=== PATIENT | female | born 1955 | race Caucasian/White ===

== ENCOUNTER 2017-07-31 14:12 | Inpatient (IN) ==
[2017-07-31] MEDS ORDERED: *HR* HYDROcodone/Acet 5/325 mg TABLET PO ONE (14:40)
[2017-07-31] MEDS ORDERED: Ondansetron ODT 4 MG TAB.RAPDIS SL ONE (14:40)
--- NOTE | 2017-07-31 14:57 | Emergency Department Note ---
Disposition Clinical Impression: Closed trimalleolar fracture of right ankle Qualifiers: Encounter type: initial encounter Qualified Code(s): S82.851A - Displaced trimalleolar fracture of right lower leg, initial encounter for closed fracture Closed avulsion fracture of left talus Qualifiers: Encounter type: initial encounter Fracture alignment: displaced Qualified Code( s): S92.152A - Displaced avulsion fracture (chip fracture) of left talus, initial encounter for closed fracture Disposition: Admitted As Inpatient Condition: Good Lower Extremity Injury HPI - General Chief Complaint: ED Extremity Injury, Lower Stated Complaint: fall, RLE injury Time Seen by Provider: 07/31/17 14:31 Source: patient, family Mode of arrival: private vehicle Limitations: no limitations Nursing Notes Reviewed: Yes Vital Signs Reviewed: Yes - History of Present Illness Pt Subjective Complaint: ankle injury Injury location: Bilateral ankle ("Right is much worse than left") 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 Denies: deformity, suspects foreign body, laceration, weakness Treatments prior to arrival: cold therapy - Related Data Home Medications Medication Instructions Recorded Confirmed Biotin 5,000 mcg PO DAILY 07/31/17 07/31/17 Diltiazem CD (24hr) [Cardizem CD] 240 mg PO DAILY 07/31/17 07/31/17 Gabapentin [Neurontin] 600 mg PO TID 07/31/17 07/31/17 Loratadine [Claritin] 10 mg PO DAILY 07/31/17 07/31/17 Montelukast [Singulair] 10 mg PO DAILY 07/31/17 07/31/17 Omeprazole [PriLOSEC] 40 mg PO DAILY 07/31/17 07/31/17 Sitagliptin Phos/Metformin HCl 1 tab PO BID 07/31/17 07/31/17 [Janumet 50-1,000 mg Tablet] Allergies Allergy/AdvReac Type Severity Reaction Status Date / Time Sulfa (Sulfonamide AdvReac Nausea Verified 07/31/17 16:17 Antibiotics) All systems ED: reviewed and negative except as stated. Review of Systems: As Per HPI Constitutional: Denies: fever, chills, weakness Cardiovascular: Denies: chest pain, palpitations Respiratory: Denies: cough, dyspnea Gastrointestinal: Denies: abdominal pain, nausea, vomiting Musculoskeletal: Reports: as per HPI, joint swelling, arthralgia. Denies: back pain, neck pain Neurological: Reports: as per HPI, numbness. Denies: headache, weakness Hematological/Lymphatic: Denies: easy bleeding, easy bruising Past Medical History - Past Medical History Attestation: Yes The following information was validated with the patient. Source: patient Medical history: Reports: diabetes, hypertension Surgical history: Reports: non-contributory Psychiatric history: Reports: no psych history - Social History Smoking Status: Never smoker Alcohol use: Reports: none Drug use: Reports: none Physical Exam - General Limitations: no limitations General appearance: alert, in no apparent distress - Head Head exam: atraumatic, normocephalic, normal inspection - Eye Eye exam: Present: normal appearance, PERRL. Absent: scleral icterus, conjunctival injection, periorbital swelling - ENT ENT exam: mucous membranes moist - Neck Neck exam: Present: normal inspection, full ROM, trachea midline. Absent: tenderness - Chest Chest inspection: Present: normal inspection - Respiratory Respiratory exam: Absent: respiratory distress - Cardiovascular Cardiovascular exam: Present: regular rate - Extremities Exam Extremities exam: Present: tenderness, normal capillary refill. Absent: calf tenderness - Expanded Lower Extremity Exam Hip/Pelvis exam: Present: normal inspection, full ROM Upper leg exam: Present: normal inspection. Absent: tenderness Knee exam: Present: normal inspection, full ROM, knee extension intact. Absent : tenderness Lower leg exam: Present: normal inspection, Achilles tendon intact. Absent: tenderness, swelling Ankle exam: Present: tenderness, swelling. Absent: full ROM, abrasion, ecchymosis, deformity, crepitus, dislocation, erythema 1 - tender, edematous 2 - tender, edematous 3 - tender, edematous Foot/toe exam: Present: tenderness (dorsal ), swelling (mild, right). Absent: abrasion, laceration, ecchymosis, deformity, crepitus, dislocation, erythema, calcaneal tenderness, tenderness at base of 5th metatarsal Neurovascular/Tendon exam: Present: normal capillary refill, normal fine/light touch. Absent: pulse deficit, motor deficit, sensory deficit, extremity cold to touch, pallor, foot drop, significant pain with passive ROM of distal joint Gait: not tested/not observed - Back Exam Back exam: Present: normal inspection - Neurological Exam Neurological exam: Present: alert, oriented X3, CN II-XII intact - Psychiatric Psychiatric exam: Present: normal affect, normal mood - Skin Skin exam: Present: warm, dry, intact, normal color Course Course Narrative: patient slipped on a step and fell, injuring her ankles - right worse than left. She denies hitting her head, denies head, neck or back injury or pain. She has pain primarily in the right ankle and is unable to bear weight. She also has mild pain in the left ankle. X-rays and pain medication have been ordered. Pain meds did not help. Parenteral analgesics have been ordered. X-ray shows a mildly displaced trimalleolar fracture of the right ankle. No bony ultimately of the right foot. Left ankle has soft tissue swelling and left foot has a small avulsion fracture of the talar neck. The right ankle will require surgical management. 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 He will repair the right ankle fracture on Wednesday. The case including x-ray findings, consult recommendations and plan has been discussed with Dr. Hernandes. He has had [id number] time with patient and agrees with the assessment and plan. Splints were applied. Patient was offered crutches but states that she has some. A family member brought him in for her to use. - Consultations Consultation #1: Case was discussed with Dr. George. He recommends calling the foot and ankle specialist on-call. Time: 15:27 Consultation #2: Case discussed with Dr. Waggoner. He recommends admission. Hospitalist has been paged. Time: 15:37 Consultation #3: Case discussed with the hospitalist. He will admit the patient. He requested that labs be ordered on the patient. These orders were entered. Results will be reviewed by the admitting team. Time: 16:15 Vital Signs Temperature 97.7 F 07/31/17 14:15 Pulse Rate 98 07/31/17 14:15 Respiratory Rate 18 07/31/17 14:15 Blood Pressure 160/86 07/31/17 14:15 O2 Sat by Pulse Oximetry 98 07/31/17 14:15 Temperature 98.0 F 07/31/17 17:03 Pulse Rate 92 07/31/17 17:03 Respiratory Rate 14 07/31/17 17:03 Blood Pressure 154/88 07/31/17 17:03 O2 Sat by Pulse Oximetry 95 07/31/17 17:03 Oxygen Delivery Oxygen Delivery Room Air Procedures - Orthopedic Splinting/Casting Injury #1 Side: right Lower Extremity Injury Location: ankle, foot Lower Extremity Immobilizer: posterior splint, stirrup splint (Both splints were applied by the tech. Post-application neurovascular exam is normal.) Injury #2 Side: left Lower Extremity Injury Location: foot Lower Extremity Immobilizer: posterior splint (Applied by the tech. Post- application neurovascular exam is normal.) Extremity Injury, Lower - Medical Records Medical records reviewed: Yes I reviewed the patient's medical records. - Lab Data Result diagrams: 07/31/17 16:29 07/31/17 16:29 Lab Results 07/31/17 07/31/17 07/31/17 Range/Units 16:29 16:29 16:29 WBC 16.0 H (4.3-11.1) K/mcL RBC 4.74 (3.82-4.97) M/mcL Hgb 13.3 (11.5-15.4) g/dL Hct 39.5 (35.3-44.9) % MCV 83.3 (83.0-100.0) fL MCH 28.1 (28.0-33.3) pg MCHC 33.7 (31.6-35.5) g/dL RDW 12.9 (11.5-14.5) % Plt Count 272 (140-400) K/mcL MPV 10.9 (9.4-12.4) fL Immature Gran % 1.1 (0-4) % Seg Neutrophils % 72.9 % Lymphocytes % 19.2 % Monocytes % 4.4 % Eosinophils % 1.8 % Basophils % 0.6 % Neutrophils # 11.6 H (1.6-8.9) K/mcL Lymphocytes # 3.1 (0.6-4.6) K/mcL Monocytes # 0.7 (0.0-1.3) K/mcL Eosinophils # 0.3 (0.0-0.6) K/mcL Basophils # 0.1 (0.0-0.2) K/mcL PT 11.5 (9.4-12.1) Seconds INR 1.1 APTT 27.8 (26.0-36.0) Seconds Sodium 138 (136-145) mEq/L Potassium 4.5 (3.5-4.5) mEq/L Chloride 104 (98-109) mEq/L Carbon Dioxide 22 (19-29) mEq/L BUN 15 (7-20) mg/dL Creatinine 0.83 (0.57-1.11) mg/dL Est GFR ( Amer) > 60 (> 60) Est GFR (Non-Af Amer) > 60 (> 60) BUN/Creatinine Ratio 18 (6-26) Glucose 273 H (70-99) mg/dL Calculated Osmolality 297 (280-300) Calcium 9.6 (8.6-10.8) mg/dL Total Bilirubin 0.3 (0.2-1.2) mg/dL AST 22 (5-34) Units/L ALT 36 (0-55) Units/L Alkaline Phosphatase 92 (38-126) Units/L Serum Total Protein 7.6 (6.0-8.3) g/dL Albumin 4.0 (3.5-5.0) g/dL Globulin 3.6 H (2.4-3.5) g/dL Albumin/Globulin Ratio 1.1 (1.1-2.2) - Radiology Data Radiology results reviewed: Yes I reviewed the patient's radiology results.
[2017-07-31] MEDS ORDERED: Ketorolac 60 MG/2 ML VIAL IM ONE (15:24)
[2017-07-31] MEDS ORDERED: Ondansetron 4 MG/2 ML VIAL IVP ONE (15:57)
[2017-07-31] MEDS ORDERED: *HR* Morphine 2 MG/ML SYRINGE IVP ONE (15:57)
--- NOTE | 2017-07-31 15:59 | Emergency Department Note ---
Disposition Clinical Impression: Closed trimalleolar fracture of right ankle Qualifiers: Encounter type: initial encounter Qualified Code(s): S82.851A - Displaced trimalleolar fracture of right lower leg, initial encounter for closed fracture Closed avulsion fracture of left talus Qualifiers: Encounter type: initial encounter Fracture alignment: displaced Qualified Code( s): S92.152A - Displaced avulsion fracture (chip fracture) of left talus, initial encounter for closed fracture Disposition: Admitted As Inpatient Condition: Good General Adult HPI - General Chief complaint: ED Extremity Injury, Lower Stated complaint: fall, RLE injury Time Seen by Provider: 07/31/17 14:31 Source: patient, family Mode of arrival: private vehicle Limitations: no limitations - History of Present Illness Pain Scale: 10 - Related Data Home Medications Medication Instructions Recorded Confirmed Biotin 5,000 mcg PO DAILY 07/31/17 07/31/17 Diltiazem CD (24hr) [Cardizem CD] 240 mg PO DAILY 07/31/17 07/31/17 Gabapentin [Neurontin] 600 mg PO TID 07/31/17 07/31/17 Loratadine [Claritin] 10 mg PO DAILY 07/31/17 07/31/17 Montelukast [Singulair] 10 mg PO DAILY 07/31/17 07/31/17 Omeprazole [PriLOSEC] 40 mg PO DAILY 07/31/17 07/31/17 Sitagliptin Phos/Metformin HCl 1 tab PO BID 07/31/17 07/31/17 [Janumet 50-1,000 mg Tablet] Allergies Allergy/AdvReac Type Severity Reaction Status Date / Time Sulfa (Sulfonamide AdvReac Nausea Verified 07/31/17 16:17 Antibiotics) Constitutional: Denies: fever, chills, weakness Cardiovascular: Denies: chest pain, palpitations Respiratory: Denies: cough, dyspnea Gastrointestinal: Denies: abdominal pain, nausea, vomiting Musculoskeletal: Reports: as per HPI, joint swelling, arthralgia. Denies: back pain, neck pain Neurological: Reports: as per HPI, numbness. Denies: headache, weakness Hematological/Lymphatic: Denies: easy bleeding, easy bruising Past Medical History - Past Medical History Medical history: Reports: diabetes, hypertension Surgical history: Reports: non-contributory Psychiatric history: Reports: no psych history - Social History Smoking Status: Never smoker Alcohol use: Reports: none Drug use: Reports: none Physical Exam - General Limitations: no limitations General appearance: alert, in no apparent distress Course Vital Signs Temperature 97.7 F 07/31/17 14:15 Pulse Rate 98 07/31/17 14:15 Respiratory Rate 18 07/31/17 14:15 Blood Pressure 160/86 07/31/17 14:15 O2 Sat by Pulse Oximetry 98 07/31/17 14:15 Temperature 98.0 F 07/31/17 23:54 Pulse Rate 77 07/31/17 23:54 Respiratory Rate 19 07/31/17 23:54 Blood Pressure 140/75 07/31/17 23:54 O2 Sat by Pulse Oximetry 97 07/31/17 23:54 Oxygen Delivery Oxygen Delivery Room Air Medical Decision Making - Lab Data Result diagrams: 07/31/17 16:29 07/31/17 16:29 Lab Results 07/31/17 07/31/17 07/31/17 Range/Units 16:29 16:29 16:29 WBC 16.0 H (4.3-11.1) K/mcL RBC 4.74 (3.82-4.97) M/mcL Hgb 13.3 (11.5-15.4) g/dL Hct 39.5 (35.3-44.9) % MCV 83.3 (83.0-100.0) fL MCH 28.1 (28.0-33.3) pg MCHC 33.7 (31.6-35.5) g/dL RDW 12.9 (11.5-14.5) % Plt Count 272 (140-400) K/mcL MPV 10.9 (9.4-12.4) fL Immature Gran % 1.1 (0-4) % Seg Neutrophils % 72.9 % Lymphocytes % 19.2 % Monocytes % 4.4 % Eosinophils % 1.8 % Basophils % 0.6 % Neutrophils # 11.6 H (1.6-8.9) K/mcL Lymphocytes # 3.1 (0.6-4.6) K/mcL Monocytes # 0.7 (0.0-1.3) K/mcL Eosinophils # 0.3 (0.0-0.6) K/mcL Basophils # 0.1 (0.0-0.2) K/mcL PT 11.5 (9.4-12.1) Seconds INR 1.1 APTT 27.8 (26.0-36.0) Seconds Sodium 138 (136-145) mEq/L Potassium 4.5 (3.5-4.5) mEq/L Chloride 104 (98-109) mEq/L Carbon Dioxide 22 (19-29) mEq/L BUN 15 (7-20) mg/dL Creatinine 0.83 (0.57-1.11) mg/dL Est GFR ( Amer) > 60 (> 60) Est GFR (Non-Af Amer) > 60 (> 60) BUN/Creatinine Ratio 18 (6-26) Glucose 273 H (70-99) mg/dL POC Glucose (58-89) Calculated Osmolality 297 (280-300) Calcium 9.6 (8.6-10.8) mg/dL Total Bilirubin 0.3 (0.2-1.2) mg/dL AST 22 (5-34) Units/L ALT 36 (0-55) Units/L Alkaline Phosphatase 92 (38-126) Units/L Serum Total Protein 7.6 (6.0-8.3) g/dL Albumin 4.0 (3.5-5.0) g/dL Globulin 3.6 H (2.4-3.5) g/dL Albumin/Globulin Ratio 1.1 (1.1-2.2) 07/31/17 Range/Units 20:25 WBC (4.3-11.1) K/mcL RBC (3.82-4.97) M/mcL Hgb (11.5-15.4) g/dL Hct (35.3-44.9) % MCV (83.0-100.0) fL MCH (28.0-33.3) pg MCHC (31.6-35.5) g/dL RDW (11.5-14.5) % Plt Count (140-400) K/mcL MPV (9.4-12.4) fL Immature Gran % (0-4) % Seg Neutrophils % % Lymphocytes % % Monocytes % % Eosinophils % % Basophils % % Neutrophils # (1.6-8.9) K/mcL Lymphocytes # (0.6-4.6) K/mcL Monocytes # (0.0-1.3) K/mcL Eosinophils # (0.0-0.6) K/mcL Basophils # (0.0-0.2) K/mcL PT (9.4-12.1) Seconds INR APTT (26.0-36.0) Seconds Sodium (136-145) mEq/L Potassium (3.5-4.5) mEq/L Chloride (98-109) mEq/L Carbon Dioxide (19-29) mEq/L BUN (7-20) mg/dL Creatinine (0.57-1.11) mg/dL Est GFR ( Amer) (> 60) Est GFR (Non-Af Amer) (> 60) BUN/Creatinine Ratio (6-26) Glucose (70-99) mg/dL POC Glucose 227 H (58-89) Calculated Osmolality (280-300) Calcium (8.6-10.8) mg/dL Total Bilirubin (0.2-1.2) mg/dL AST (5-34) Units/L ALT (0-55) Units/L Alkaline Phosphatase (38-126) Units/L Serum Total Protein (6.0-8.3) g/dL Albumin (3.5-5.0) g/dL Globulin (2.4-3.5) g/dL Albumin/Globulin Ratio (1.1-2.2) Attestation Statement - Attestation Attestation: I examined this patient and my medical decision-making was reviewed with the Resident Physician. I agree with the documented findings, disposition and treatment plan as described except to the extent set forth below. [id number] time provided Patient with a fracture. Case staffed with the on-call crtt by the physician clinical education assistant. Admission requested. Splint applied prior to my examination
[2017-07-31 16:43] LABS: INR 1.1; Prothrombin Time 11.5 Seconds (9.4-12.1)
[2017-07-31 16:46] LABS: Activated Partial Thrombo Time 27.8 Seconds (26.0-36.0); Basophils # 0.1 K/mcL (0.0-0.2); Basophils % 0.6 %; Eosinophils # 0.3 K/mcL (0.0-0.6); Eosinophils % 1.8 %; Hematocrit 39.5 % (35.3-44.9); Hemoglobin 13.3 g/dL (11.5-15.4); Immature Granulocytes % 1.1 % (0-4); Lymphocytes # 3.1 K/mcL (0.6-4.6); Lymphocytes % 19.2 %; Mean Corpuscular HGB Conc 33.7 g/dL (31.6-35.5); Mean Corpuscular Hemoglobin 28.1 pg (28.0-33.3); Mean Corpuscular Volume 83.3 fL (83.0-100.0); Mean Platelet Volume 10.9 fL (9.4-12.4); Monocytes # 0.7 K/mcL (0.0-1.3); Monocytes % 4.4 %; Neutrophils # 11.6 K/mcL (1.6-8.9); Platelet Count 272 K/mcL (140-400); Red Blood Count 4.74 M/mcL (3.82-4.97); Red Cell Distribution Width 12.9 % (11.5-14.5); Segmented Neutrophils % 72.9 %
[2017-07-31 16:55] LABS: Alanine Aminotransferase 36 Units/L (0-55); Albumin/Globulin Ratio 1.1 (1.1-2.2); Alkaline Phosphatase 92 Units/L (38-126); Aspartate Amino Transferase 22 Units/L (5-34); BUN/Creatinine Ratio 18 (6-26); Bilirubin,Total 0.3 mg/dL (0.2-1.2); Blood Urea Nitrogen 15 mg/dL (7-20); Calcium 9.6 mg/dL (8.6-10.8); Carbon Dioxide 22 mEq/L (19-29); Chloride 104 mEq/L (98-109); Globulin 3.6 g/dL (2.4-3.5); Glucose 273 mg/dL (70-99); Osmolality,Calculated 297 (280-300); Potassium 4.5 mEq/L (3.5-4.5); Sodium 138 mEq/L (136-145); Total Protein 7.6 g/dL (6.0-8.3); eGFR For African Americans > 60 (> 60); eGFR For Non-African Americans > 60 (> 60)
[2017-07-31] MEDS ORDERED: Acetaminophen 325 MG TABLET PO PRN (18:54)
[2017-07-31] MEDS ORDERED: Naloxone 0.4 MG/ML INJ IVP PRN (18:54)
[2017-07-31] MEDS ORDERED: D5% in Water 1,000 ML IVC PRN (18:59)
[2017-07-31] MEDS ORDERED: *HR* Dextrose 50 % in Water (Syg) 50 ML SYRINGE IVP PRN (18:59)
[2017-07-31] MEDS ORDERED: Dextrose Gel 15 GM PO PRN ×2 (18:59)
--- NOTE | 2017-07-31 19:11 | Internal Med History&Physical ---
Date of Encounter: 07/31/17 Time of Encounter: 19:04 Assessment and Plan (1) Closed trimalleolar fracture of right ankle Current visit: Yes Status: Acute Consult to podiatry patient-we will make patient nothing by mouth after midnight for possible surgical intervention in the a.m. Will continue with morphine and Webster for pain Zofran for nausea Qualifiers: Encounter type: initial encounter Qualified Code(s): S82.851A - Displaced trimalleolar fracture of right lower leg, initial encounter for closed fracture (2) Closed avulsion fracture of left talus Current visit: Yes Status: Acute We will have podiatry see patient consult placed Qualifiers: Encounter type: initial encounter Fracture alignment: displaced Qualified Code(s): S92.152A - Displaced avulsion fracture (chip fracture) of left talus, initial encounter for closed fracture (3) Hypertension Current visit: No Status: Chronic Continue with Cardizem Low-sodium diet Qualifiers: Hypertension type: essential hypertension Qualified Code(s): I10 - Essential (primary) hypertension (4) Diabetes Current visit: No Status: Chronic Accu-Cheks before meals at bedtime with sliding scale insulin we will hold oral medications for now Diabetic diet Qualifiers: Diabetes mellitus type: type 2 Diabetes mellitus complication status: without complication 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 Conde is a 61 year old female past medical history of hypertension diabetes. According to the patient she was turning to step down on 2 steps lost her balance and fell she denies hitting her head denies any neck or back injury. However she will was experiencing right ankle pain and was unable to bear weight. She also experienced mild pain to her left ankle. She presented to the ER for evaluation and was found to have mildly displaced trimalleolar fracture of the right ankle. Left ankle with soft tissue swelling left foot with a small avulsion fracture of the talar neck. The ER did speak with podiatry he will see patient. Patient will be admitted for further orthopedic evaluation. Presently patient does not appear to be in any pain or discomfort. She she is hemodynamically stable at this time Past Med Surg Social Fam HX - Past Medical History Medical history: diabetes, hypertension Psychiatric history: no psych history - Past Surgical History Surgical History: non-contributory - Social History Smoking Status: Never smoker Smokeless Tobacco Status: No Alcohol use: none Drug use: none - Family History Mother Living Status: Age at : 47 Cause of : Lung cancer Father Living Status: Still Living Hx Family Cancer: Yes (Bladder) Internal Medicine - H&P: Meds Biotin 5,000 mcg PO DAILY 07/31/17 [History] Diltiazem CD (24hr) [Cardizem CD] 240 mg PO DAILY 07/31/17 [History] Gabapentin [Neurontin] 600 mg PO TID 07/31/17 [History] Loratadine [Claritin] 10 mg PO DAILY 07/31/17 [History] Montelukast [Singulair] 10 mg PO DAILY 07/31/17 [History] Omeprazole [PriLOSEC] 40 mg PO DAILY 07/31/17 [History] Sitagliptin Phos/Metformin HCl [Janumet 50-1,000 mg Tablet] 1 tab PO BID [History] 3 Allergy/AdvReac Type Severity Reaction Status Date / Time Sulfa (Sulfonamide AdvReac Nausea Verified 07/31/17 16:17 Antibiotics) All Systems PM: A 10-system review of systems was performed and is negative for pertinent findings except as documented above in the HPI. - Constitutional Constitutional: no chills, no fever(s), no night sweats - EENT Eyes: no change in vision, no discharge, no pain, no photophobia Nose, mouth and throat: no dysphagia, no nasal discharge, no neck pain, no sore throat - Cardiovascular Cardiovascular ROS IM: no chest pain, no diaphoresis, no dyspnea, no lightheadedness, no palpitations, no syncope - Respiratory Respiratory: no cough, no dyspnea, no wheezing, no excessive phlegm production - Gastrointestinal Gastrointestinal: no abdominal pain, no diarrhea, no hematemesis, no hematochezia, no melena, no nausea, no vomiting - Genitourinary Genitourinary: no change in urinary stream, no dysuria, no flank pain, no hematuria - Musculoskeletal Musculoskeletal ROS IM: no numbness, no tingling - Integumentary Integumentary IM: no rash, no unusual bruising - Neurological Neurological ROS: no confusion, no convulsions, no focal weakness, no numbness, no tingling, no tremor(s) - Hematologic/Lymphatic Hematologic/Lymphatic: no easy bruising - Constitutional Vitals: Temp Pulse Resp BP Pulse Ox 98.0 F 92 14 154/88 95 07/31/17 17:03 07/31/17 17:03 07/31/17 17:03 07/31/17 17:03 07/31/17 17:03 General appearance: Present: A&O X 3, answers questions appropriately - Head Head exam: Present: atraumatic, normocephalic - Eye Eye exam: Present: PERRL, conjuntiva pink, sclera anicteric Pupils: Present: PERRL - Neck Neck exam general surgery: Present: supple, trachea midline. Absent: lymphadenopathy - Respiratory Respiratory exam: Present: CTAB. Absent: accessory muscle use, rales, rhonchi, wheezes - Cardiovascular Cardiovascular exam: Present: RRR, +S1, +S2. Absent: diastolic murmur, gallop, rubs, systolic murmur - GI/Abdominal GI/Abdominal exam: Present: normal bowel sounds, soft, no peritoneal signs. Absent: distended, tenderness - Extremities Exam Extremities exam: Present: normal capillary refill, tenderness, warm, radial pulses palpable and symmetrical. Absent: calf tenderness, cyanotic, pedal edema - Expanded Lower Extremities Exam Ankle exam: Present: swelling, tenderness - Neurological Exam Neurological exam: Present: CN II-XII intact, oriented X3, no focal deficits. Absent: pronater drift, facial droop, speech deficit - Skin Skin exam: Present: dry, intact Internal Med - H&P Results - Labs CBC & Chem 7: 07/31/17 16:29 07/31/17 16:29 - Diagnostic Studies Other Images Additional comments: Ankle X-Ray 07/31/17 14:57 IMPRESSION: No acute osseous abnormality of the left ankle. Small avulsion fracture along the dorsal aspect of the talar neck. D/ / Carlos Fernandez MD / Carlos Fernandez MD Interpreting Provider: Carlos Fernandez MD Foot X-Ray 07/31/17 14:57 IMPRESSION: No acute osseous abnormality of the left ankle. Small avulsion fracture along the dorsal aspect of the talar neck. D/ / Carlos Fernandez MD / Carlos Fernandez MD Interpreting Provider: Carlos Fernandez MD Knee X-Ray 07/31/17 15:45 IMPRESSION: No acute bony abnormality. D/ / Vianca Rubalcava Cha, MD / Vianca Rubalcava Cha, MD Interpreting Provider: Vianca Rubalcava Cha, MD
[2017-07-31] MEDS: Gabapentin 300 MG CAPSULE PO SCH (20:15)
[2017-07-31] MEDS: *HR* Morphine 2 MG/ML SYRINGE IVP PRN (20:15)
[2017-07-31] MEDS: Insulin LISPRO 300 UNITS/3 ML VIAL SQ SCH (20:30)
--- NOTE | 2017-07-31 22:32 | Event Note ---
Date of Encounter: 07/31/17 Time of Encounter: 22:30 Patient and examined with nurse practitioner. Agree with this assessment and plan. With regards to preoperative clearance, patient has fair functional capacity. She can walk 2 blocks. Clinical predictors included diabetes mellitus and hypertension. Patient denies any chest pain with exertion. Patient mentioned that she had a coronary angiogram approximately 5 years ago showed no occlusive disease. Her electrocardiogram nonetheless shows T wave inversion and leads V1 and V2. However there is no ST segment shift. No active chest pain. Therefore there is no need for further preoperative cardiac testing. continue diltiazem. Because of her clinical predictors she will be at moderate risk for perioperative cardiac complications.
[2017-08-01] MEDS: *HR* HYDROcodone/Acet 5/325 mg TABLET PO PRN ×5 (00:04→23:42)
[2017-08-01] MEDS: *HR* Morphine 2 MG/ML SYRINGE IVP PRN ×2 (02:54→11:43)
[2017-08-01 05:03] LABS: Mean Corpuscular HGB Conc 33.2 g/dL (31.6-35.5); Mean Corpuscular Hemoglobin 28.1 pg (28.0-33.3); Mean Corpuscular Volume 84.6 fL (83.0-100.0); Mean Platelet Volume 11.4 fL (9.4-12.4); Platelet Count 229 K/mcL (140-400); Red Blood Count 4.02 M/mcL (3.82-4.97); Red Cell Distribution Width 13.1 % (11.5-14.5)
[2017-08-01 05:04] LABS: Hemoglobin 11.3 g/dL (11.5-15.4)
[2017-08-01 05:37] LABS: BUN/Creatinine Ratio 20 (6-26); Blood Urea Nitrogen 17 mg/dL (7-20); Calcium 9.2 mg/dL (8.6-10.8); Carbon Dioxide 25 mEq/L (19-29); Chloride 103 mEq/L (98-109); Glucose 242 mg/dL (70-99); Osmolality,Calculated 296 (280-300); Potassium 4.7 mEq/L (3.5-4.5); Sodium 138 mEq/L (136-145); eGFR For African Americans > 60 (> 60); eGFR For Non-African Americans > 60 (> 60)
[2017-08-01] MEDS: Insulin LISPRO 300 UNITS/3 ML VIAL SQ SCH ×5 (07:16→20:20)
[2017-08-01] MEDS: Gabapentin 300 MG CAPSULE PO SCH ×3 (08:03→19:48)
[2017-08-01] MEDS: Diltiazem CD (24hr) 240 MG CAPSULE PO SCH (08:03)
[2017-08-01] MEDS: Pantoprazole 40 MG VIAL IVP SCH (08:08)
--- NOTE | 2017-08-01 09:04 | Podiatry Consult Note ---
Date of Encounter: 08/01/17 Time of Encounter: 09:02 Assessment and Plan (1) Closed trimalleolar fracture of right ankle Current visit: Yes Status: Acute Assessment #1: Bimalleolar fracture right ankle #2 long fracture talar neck left #3 type 2 diabetes under control #4 hypertension Plan: #1 continue elevation ice rest compression to control edema and prevent fracture blisters #2 removed posterior splint of left side to prevent heel ulceration and reapply Toribio wrap. #3 patient may use bedside commode with assistance with touchdown weightbearing of her left heel #4 nothing by mouth after midnight in anticipation of ORIF right ankle #5 do not anticipate having to surgically repair avulsion fracture of the left talus Qualifiers: Encounter type: initial encounter Qualified Code(s): S82.851A - Displaced trimalleolar fracture of right lower leg, initial encounter for closed fracture History of Present Illness Chief complaint: Fracture right ankle left talus HPI: Ms. Conde is a 61 year old female, presented to ED last evening with a bimalleolar fracture of the right ankle and avulsion fracture of the left talus. Patient was at her [employer] yesterday for a function was on an anterior step and fell causing these fractures. Patient states she crawled to a point where she could get help. She was then transported to the emergency department and admitted for pain control and presurgical optimization. She has a 10 year history of diabetes under good control. Her last A1c per patient was 6.7. She relates complete sensation of both feet although she does have some paresthesias that are controlled with gabapentin at night. Past Med Surg Social Fam HX - Past Medical History Medical history: diabetes, hypertension Psychiatric history: no psych history - Past Surgical History Surgical History: non-contributory - Social History Smoking Status: Never smoker Smokeless Tobacco Status: No Alcohol use: none Drug use: none - Family History Mother Living Status: Age at : 47 Cause of : Lung cancer Father Living Status: Still Living Hx Family Cancer: Yes (Bladder) Medications and Allergies Biotin 5,000 mcg PO DAILY 07/31/17 [History] Diltiazem CD (24hr) [Cardizem CD] 240 mg PO DAILY 07/31/17 [History] Gabapentin [Neurontin] 600 mg PO TID 07/31/17 [History] Loratadine [Claritin] 10 mg PO DAILY 07/31/17 [History] Montelukast [Singulair] 10 mg PO DAILY 07/31/17 [History] Omeprazole [PriLOSEC] 40 mg PO DAILY 07/31/17 [History] Sitagliptin Phos/Metformin HCl [Janumet 50-1,000 mg Tablet] 1 tab PO BID [History] 3 Allergy/AdvReac Type Severity Reaction Status Date / Time Sulfa (Sulfonamide AdvReac Nausea Verified 07/31/17 16:17 Antibiotics) All Systems Reviewed: A 10-system review of systems was performed and is negative for pertinent findings except as documented above in the HPI. Physical Exam - Constitutional Vitals: Temp Pulse Resp BP Pulse Ox 98.5 F 86 14 135/78 94 08/01/17 06:51 08/01/17 06:51 08/01/17 06:51 08/01/17 06:51 08/01/17 06:51 General appearance: average body habitus, no acute distress - Neurological Exam Additional comments: Intact epicritic sensation 2 point determination light touch her toes distally bilaterally. - Skin Additional comments: Intact, no evidence of fracture blister, or pressure ulceration. - Vascular Capillary Refill: less than 3 seconds Lower Extremity Vascular: no vascular compromise - Ankle & Foot Appearance ankle: swelling Foot appearance: swelling Results - Labs Result Diagrams: 08/01/17 03:50 08/01/17 03:50 Labs: Abnormal lab results WBC 16.0 K/mcL (4.3-11.1) H 08/01/17 03:50 Hgb 11.3 g/dL (11.5-15.4) L D 08/01/17 03:50 Hct 34.0 % (35.3-44.9) L 08/01/17 03:50 Neutrophils # 11.6 K/mcL (1.6-8.9) H 07/31/17 16:29 Potassium 4.7 mEq/L (3.5-4.5) H 08/01/17 03:50 Glucose 242 mg/dL (70-99) H 08/01/17 03:50 POC Glucose 227 (58-89) H 07/31/17 20:25 Globulin 3.6 g/dL (2.4-3.5) H 07/31/17 16:29 H & H 08/01/17 Range/Units 03:50 Hgb 11.3 L D (11.5-15.4) g/dL Hct 34.0 L (35.3-44.9) % All other labs normal. - Diagnostic results Ankle/Foot x-ray: image reviewed Consult Discharge Plan - Plan Referrals: Ministerio Oh DO [Primary Care Provider] -
[2017-08-01 12:15] LABS: Bilirubin,Urine Negative (Negative); Blood,Urine Negative (Negative); Clarity,Urine Clear (Clear); Color,Urine Yellow (Yellow); Glucose,Urine (UA) 250 mg/dL (Normal); Ketones,Urine Negative (Negative); Leukocyte Esterase,Urine Negative (Negative); Nitrite,Urine Negative (Negative); PH,Urine 6.5 pH Units (5.0-8.0); Protein,Urine Negative (Neg-Trace); Specific Gravity,Urine 1.013 (1.010-1.025); Urobilinogen,Urine Normal (Normal)
--- NOTE | 2017-08-01 14:57 | Internal Med Progress Note ---
Date of Encounter: 08/01/17 Time of Encounter: 10:00 - Assessment and plan (1) Hypertension Current Visit: Yes Status: Chronic Assessment and plan: Currently controlled. Continue home medications. Qualifiers: Hypertension type: essential hypertension Qualified Code(s): I10 - Essential (primary) hypertension (2) Diabetes Current Visit: Yes Status: Chronic Assessment and plan: Blood sugars elevated at this time. Has been well controlled recently at home. Monitoring and using insulin at this time. Qualifiers: Diabetes mellitus type: type 2 Diabetes mellitus complication status: without complication Diabetes mellitus retirement insulin use: without retirement use Qualified Code(s): E11.9 - Type 2 diabetes mellitus without complications (3) Closed trimalleolar fracture of right ankle Current Visit: Yes Status: Acute Assessment and plan: Plan is for OR tomorrow. Currently she is moderate risk for a low risk procedure. She relates some chest discomfort when on a medication that now has been stopped. Her symptoms stopped as well. Cardiac cath 5 years ago and was OK per patient. Check echo prior to surgery to andreina GARCIA. Qualifiers: Encounter type: subsequent encounter Fracture healing: with routine healing Qualified Code(s): S82.851D - Displaced trimalleolar fracture of right lower leg, subsequent encounter for closed fracture with routine healing (4) Closed avulsion fracture of left talus Current Visit: Yes Status: Acute Assessment and plan: Conservative management per podiatry. Qualifiers: Encounter type: subsequent encounter Fracture alignment: displaced Fracture healing: with routine healing Qualified Code(s): S92.152D - Displaced avulsion fracture (chip fracture) of left talus, subsequent encounter for fracture with routine healing - Subjective Interval history: Ms Conde is currently admitted for acute fractures of both ankles. She remains moderate to high risk due to potential for worsening issues with fractures and blood sugar. Ms Conde is doing OK. Pain is tolerable at this time. No fever or chills. Plan is for OR tomorrow to fix R ankle. L ankle is an avulsion fracture and to be managed conservatively. - Constitutional Vitals: Temp Pulse Resp BP Pulse Ox 97.8 F 93 16 139/70 95 08/01/17 10:21 08/01/17 10:21 08/01/17 10:21 08/01/17 10:21 08/01/17 10:21 General appearance: Present: A&O X 3, pleasant, answers questions appropriately - Head Head exam: Present: normocephalic - Eye Eye exam: Present: EOMI, conjuntiva pink - ENT ENT exam: Present: mucous membranes dry - Respiratory Respiratory exam: Present: CTAB. Absent: rhonchi, wheezes - Cardiovascular Cardiovascular exam: Present: RRR. Absent: systolic murmur, tachycardia - GI/Abdominal GI/Abdominal exam: Present: soft. Absent: tenderness - Extremities Exam Extremities exam: Present: warm Additional comments: Bilateral posterior splints - Neurological Exam Neurological exam: Present: alert, oriented X3 - Skin Skin exam: Present: warm Internal Medicine: Result - Labs CBC & Chem 7: 08/01/17 03:50 08/01/17 03:50 Labs: Short CBC 08/01/17 Range/Units 03:50 WBC 16.0 H (4.3-11.1) K/mcL Hgb 11.3 L D (11.5-15.4) g/dL Hct 34.0 L (35.3-44.9) % Plt Count 229 (140-400) K/mcL BMP 08/01/17 03:50 Sodium 138 Potassium 4.7 H Chloride 103 Carbon Dioxide 25 BUN 17 Creatinine 0.85 Glucose 242 H Calcium 9.2 Urine 08/01/17 Range/Units 12:06 Urine Color Yellow (Yellow) Urine Clarity Clear (Clear) Urine pH 6.5 (5.0-8.0) pH Units Ur Specific [place] 1.013 (1.010-1.025) Urine Protein Negative (Neg-Trace) mg/dL Urine Glucose (UA) 250 H (Normal) mg/dL - ABG Interpretation ABG results: PT/INR, D-dimer PT 11.5 Seconds (9.4-12.1) 07/31/17 16:29 Consult Discharge Plan - Plan Referrals: Ministerio Oh DO [Primary Care Provider] -
[2017-08-01] MEDS ORDERED: Insulin DETEMIR 100 UNIT/ML X5UNITS SQ SCH (21:00)
[2017-08-02] MEDS: *HR* Morphine 2 MG/ML SYRINGE IVP PRN ×4 (01:47→16:10)
[2017-08-02] MEDS: Ondansetron 4 MG/2 ML VIAL IVP PRN ×2 (01:55→13:54)
[2017-08-02] MEDS: *HR* HYDROcodone/Acet 5/325 mg TABLET PO PRN ×4 (04:44→23:08)
[2017-08-02 05:10] LABS: Hematocrit 36.1 % (35.3-44.9); Hemoglobin 11.7 g/dL (11.5-15.4); Mean Corpuscular HGB Conc 32.4 g/dL (31.6-35.5); Mean Corpuscular Hemoglobin 27.7 pg (28.0-33.3); Mean Corpuscular Volume 85.5 fL (83.0-100.0); Mean Platelet Volume 10.8 fL (9.4-12.4); Platelet Count 247 K/mcL (140-400); Red Blood Count 4.22 M/mcL (3.82-4.97)
[2017-08-02 05:35] LABS: BUN/Creatinine Ratio 19 (6-26); Blood Urea Nitrogen 15 mg/dL (7-20); Calcium 9.1 mg/dL (8.6-10.8); Carbon Dioxide 27 mEq/L (19-29); Chloride 103 mEq/L (98-109); Glucose 235 mg/dL (70-99); Magnesium 1.7 mg/dL (1.6-2.6); Osmolality,Calculated 296 (280-300); Potassium 4.4 mEq/L (3.5-4.5); Sodium 139 mEq/L (136-145); eGFR For African Americans > 60 (> 60); eGFR For Non-African Americans > 60 (> 60)
[2017-08-02] MEDS: Pantoprazole 40 MG VIAL IVP SCH (07:40)
[2017-08-02] MEDS: Gabapentin 300 MG CAPSULE PO SCH ×2 (07:40→13:52)
[2017-08-02] MEDS: Insulin LISPRO 300 UNITS/3 ML VIAL SQ SCH ×3 (07:40→17:31)
[2017-08-02] MEDS: Diltiazem CD (24hr) 240 MG CAPSULE PO SCH (07:40)
--- NOTE | 2017-08-02 13:04 | Podiatry Progress Note ---
Date of Encounter: 08/02/17 Time of Encounter: 13:02 - Assessment and Plan (1) Closed trimalleolar fracture of right ankle Current Visit: Yes Status: Acute The patient was instructed that her ankle is unstable and will need surgical intervention. The patient related an understanding. The patient wishes to pursue surgical intervention. the surgery discussed was open reduction, internal fixation of the trimalleolar ankle fracture.Patient was informed of the risks and complications of surgery. These may include but are not limited to the following; nerve damage, numbness, tingling, RSD/CRPS, loss of motor function, loss of toe, loss of limb, loss of life, ischemia, wound healing issues, infection, scarring, keloid formation, continued pain, arthritis, non- union, mal-union, prominent hardware, displaced hardware, reaction to hardware, the need to remove hardware, bruising, continued limp, the need for future surgery, over correction, under correction, chronic swelling, the need for physical therapy, stiffness of joints, ulceration, slow healing, wound dehiscence, reaction to implant, reaction to sutures. The patient was informed of the possible conservative treatments available which may include but are not limited to the following: Orthotics, bracing, non -weight bearing, physical therapy, padding, taping, steroid injections, NSAIDS, casting. The patient was given the option to seek a second opinion. It was explained that surgery is an art and not an exact science therefore results cannot be guaranteed. All the patients questions and concerns were addressed. Patient agrees to have the surgery despite the possible risks and complications. Absolutely no guarantees were given or implied. Qualifiers: Encounter type: subsequent encounter Fracture healing: with routine healing Qualified Code(s): S82.851D - Displaced trimalleolar fracture of right lower leg, subsequent encounter for closed fracture with routine healing Subjective Principal diagnosis: Right ankle fracture Interval history: Patient relates that she has less pain and that she feels as though it is doing better than it was yesterday. Patient denies any other new pedal complaints. Patient relates that she has been using her left foot to transition to a chair and bedside commode without any issues. Objective - Vital Signs Vital Signs: Vital Signs Temp Pulse Resp BP Pulse Ox 08/02/17 11:51 98.1 F 92 16 124/73 92 08/02/17 06:42 98.4 F 90 15 131/68 92 10/30/17 00:06 98.1 F 81 18 141/80 96 08/01/17 20:35 98.3 F 90 18 148/80 96 Intake and Output 08/01/17 08/02/17 08/02/17 23:59 07:59 15:59 Intake Total 590 / 590 0 / 0 Output Total 850 / 850 200 / 200 Balance -260 / -260 -200 / -200 Intake: Oral 590 / 590 0 / 0 Output: Urine 850 / 850 200 / 200 Other: Meal Dinner Percent of Meal Consumed 90% # Voids 1 Blood Glucose* 276 220 209 - Exam Exam: Pedal pulses palpable. Capillary fill time intact to digits 1 through 5 bilaterally. There are no open lesions, abrasions, or ulcerations. Sensation grossly intact to light touch to the level of the digits. Right ankle edema noted. Pain with palpation of the right ankle. Radiographic exam demonstrates a right ankle fracture. The left foot exam demonstrates a small avulsion fracture of the left foot. - Lab Result Diagrams: 08/02/17 04:54 08/02/17 04:54 Labs: Abnormal lab results WBC 12.8 K/mcL (4.3-11.1) H 08/02/17 04:54 MCH 27.7 pg (28.0-33.3) L 08/02/17 04:54 Neutrophils # 11.6 K/mcL (1.6-8.9) H 07/31/17 16:29 Glucose 235 mg/dL (70-99) H 08/02/17 04:54 POC Glucose 220 (58-89) H 08/02/17 07:36 Globulin 3.6 g/dL (2.4-3.5) H 07/31/17 16:29 Urine Glucose (UA) 250 mg/dL (Normal) H 08/01/17 12:06 Consult Discharge Plan - Plan Referrals: Ministerio Oh DO [Primary Care Provider] -
--- NOTE | 2017-08-02 15:13 | Internal Med Progress Note ---
Date of Encounter: 08/02/17 Time of Encounter: 15:12 - Assessment and plan (1) Hypertension Current Visit: Yes Status: Chronic Assessment and plan: Controlled. Continue meds. Qualifiers: Hypertension type: essential hypertension Qualified Code(s): I10 - Essential (primary) hypertension (2) Diabetes Current Visit: Yes Status: Chronic Assessment and plan: Continue monitoring. Qualifiers: Diabetes mellitus type: type 2 Diabetes mellitus complication status: without complication Diabetes mellitus efficiency expert insulin use: without skilled nursing use Qualified Code(s): E11.9 - Type 2 diabetes mellitus without complications (3) Closed trimalleolar fracture of right ankle Current Visit: Yes Status: Acute Assessment and plan: Plan for OR today. Qualifiers: Encounter type: subsequent encounter Fracture healing: with routine healing Qualified Code(s): S82.851D - Displaced trimalleolar fracture of right lower leg, subsequent encounter for closed fracture with routine healing (4) Closed avulsion fracture of left talus Current Visit: Yes Status: Acute Assessment and plan: Conservative management per podiatry. Qualifiers: Encounter type: subsequent encounter Fracture alignment: displaced Fracture healing: with routine healing Qualified Code(s): S92.152D - Displaced avulsion fracture (chip fracture) of left talus, subsequent encounter for fracture with routine healing - Subjective Interval history: Ms Conde is currently admitted for acute fractures of both ankles. She remains moderate to high risk due to potential for worsening issues with fractures and blood sugar. Ms Conde feels OK. She is waiting to go to OR. Pain is controlled currently. - Constitutional Vitals: Temp Pulse Resp BP Pulse Ox 98.1 F 92 16 124/73 92 08/02/17 11:51 08/02/17 11:51 08/02/17 11:51 08/02/17 11:51 08/02/17 11:51 General appearance: Present: A&O X 3, pleasant, answers questions appropriately - Head Head exam: Present: normocephalic - Eye Eye exam: Present: conjuntiva pink - ENT ENT exam: Present: mucous membranes moist - Respiratory Respiratory exam: Present: CTAB. Absent: rhonchi, wheezes - Cardiovascular Cardiovascular exam: Present: RRR. Absent: tachycardia - GI/Abdominal GI/Abdominal exam: Present: soft. Absent: tenderness - Extremities Exam Extremities exam: Present: warm. Absent: tenderness - Neurological Exam Neurological exam: Present: alert, oriented X3 Internal Medicine: Result - Labs CBC & Chem 7: 08/02/17 04:54 08/02/17 04:54 Labs: Short CBC 08/02/17 Range/Units 04:54 WBC 12.8 H (4.3-11.1) K/mcL Hgb 11.7 (11.5-15.4) g/dL Hct 36.1 (35.3-44.9) % Plt Count 247 (140-400) K/mcL BMP 08/02/17 04:54 Sodium 139 Potassium 4.4 Chloride 103 Carbon Dioxide 27 BUN 15 Creatinine 0.79 Glucose 235 H Calcium 9.1 - ABG Interpretation ABG results: PT/INR, D-dimer PT 11.5 Seconds (9.4-12.1) 07/31/17 16:29 - Impressions Impressions Echocardiogram 08/01/17 11:22 Impressions: LVEF 55%. Mild concentric left ventricular hypertrophy. Mild left ventricular diastolic dysfunction. Normal right ventricular structure and function. No significant valvular dysfunction. No pulmonary hypertension. Left Ventricular Wall Motion: Rest Echo Findings All wall segments showed normal motion. Findings: Study Quality * Technically adequate exam. ECG Findings * Normal sinus rhythm. Left Ventricle * LVEF 55%. * Normal LV chamber size, wall thickness and function. * Mild concentric left ventricular hypertrophy. * Mild left ventricular diastolic dysfunction. Right Ventricle * Normal right ventricular structure and function. Left Atrium * Normal left atrial size. Right Atrium * Normal right atrial size. Aortic Valve * No aortic regurgitation. * Trileaflet aortic valve. * No aortic stenosis. Mitral Valve * Normal mitral valve structure. * No mitral stenosis. * Trace mitral regurgitation. Pulmonic Valve * Pulmonic valve is not well visualized. * No pulmonic stenosis. * Trace pulmonic regurgitation. Tricuspid Valve * Tricuspid valve not well visualized. * No tricuspid regurgitation. Pulmonary Artery * Pulmonary artery not well visualized. Aorta * Normally sized aortic root. Pericardium * There is no pericardial effusion present. Interatrial Septum * Interatrial septum not well evaluated. IVC * The IVC is not well evaluated. Consult Discharge Plan - Plan Referrals: Ministerio Oh DO [Primary Care Provider] -
[2017-08-02] MEDS ORDERED: *HR* Rocuronium Bromide 50 MG/5 ML VIAL ONE (16:10)
[2017-08-02] MEDS ORDERED: *HR* Propofol 200 MG/20 ML VIAL IVP ONE (16:10)
[2017-08-02] MEDS ORDERED: *HR* Succinylcholine 200 MG/10 ML VIAL IVP ONE (16:10)
[2017-08-02] MEDS ORDERED: Lidocaine -MPF 2% 2 ML VIAL ONE (16:10)
[2017-08-02] MEDS ORDERED: Ondansetron 4 MG/2 ML VIAL ONE (16:10)
[2017-08-02] MEDS ORDERED: Dexamethasone 4 MG/ML VIAL ONE (16:10)
[2017-08-02] MEDS ORDERED: Lidocaine -MPF 4% 5 ML AMPUL ONE (16:10)
[2017-08-02] MEDS ORDERED: *HR* FentaNYL (PF) 100 MCG/2 ML VIAL ONE (16:10)
[2017-08-02] MEDS ORDERED: *HR* Midazolam HCl 2 MG/2 ML VIAL ONE (16:11)
[2017-08-02] MEDS ORDERED: Bupivacaine/Clonidine Syringe 1 EACH SYRINGE ONE (16:24)
--- NOTE | 2017-08-02 16:31 | Anesthesia Evaluation PreOp ---
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: Other (Chronic pain maintained on Gabapentin) Other Medical History: Diabetes Type II (maintained on Janumet), GERD ( maitnained on Prilosec) Anesthesia History: No Prior Anesthetic Complications, Past Anesthesia Alcohol Use: none Drug use: none Medications and Allergies Biotin 5,000 mcg PO DAILY 07/31/17 [History] Diltiazem CD (24hr) [Cardizem CD] 240 mg PO DAILY 07/31/17 [History] Gabapentin [Neurontin] 600 mg PO TID 07/31/17 [History] Loratadine [Claritin] 10 mg PO DAILY 07/31/17 [History] Montelukast [Singulair] 10 mg PO DAILY 07/31/17 [History] Omeprazole [PriLOSEC] 40 mg PO DAILY 07/31/17 [History] Sitagliptin Phos/Metformin HCl [Janumet 50-1,000 mg Tablet] 1 tab PO BID [History] 3 Allergy/AdvReac Type Severity Reaction Status Date / Time Sulfa (Sulfonamide AdvReac Nausea Verified 07/31/17 16:17 Antibiotics) - Meds/Allergy Pre-op Review Medications Reviewed: Yes Allergies Reviewed: Yes Beta Blockers on Current Med List: No Anesthesia Results - Labs 08/02/17 04:54 08/02/17 04:54 Laboratory Results WBC 12.8 K/mcL (4.3-11.1) H 08/02/17 04:54 RBC 4.22 M/mcL (3.82-4.97) 08/02/17 04:54 Hgb 11.7 g/dL (11.5-15.4) 08/02/17 04:54 Hct 36.1 % (35.3-44.9) 08/02/17 04:54 MCV 85.5 fL (83.0-100.0) 08/02/17 04:54 MCH 27.7 pg (28.0-33.3) L 08/02/17 04:54 MCHC 32.4 g/dL (31.6-35.5) 08/02/17 04:54 RDW 13.0 % (11.5-14.5) 08/02/17 04:54 Plt Count 247 K/mcL (140-400) 08/02/17 04:54 MPV 10.8 fL (9.4-12.4) 08/02/17 04:54 Immature Gran % 1.1 % (0-4) 07/31/17 16:29 Seg Neutrophils % 72.9 % 07/31/17 16:29 Lymphocytes % 19.2 % 07/31/17 16:29 Monocytes % 4.4 % 07/31/17 16:29 Eosinophils % 1.8 % 07/31/17 16:29 Basophils % 0.6 % 07/31/17 16:29 Neutrophils # 11.6 K/mcL (1.6-8.9) H 07/31/17 16:29 Lymphocytes # 3.1 K/mcL (0.6-4.6) 07/31/17 16:29 Monocytes # 0.7 K/mcL (0.0-1.3) 07/31/17 16:29 Eosinophils # 0.3 K/mcL (0.0-0.6) 07/31/17 16:29 Basophils # 0.1 K/mcL (0.0-0.2) 07/31/17 16:29 PT 11.5 Seconds (9.4-12.1) 07/31/17 16:29 INR 1.1 07/31/17 16:29 APTT 27.8 Seconds (26.0-36.0) 07/31/17 16:29 Sodium 139 mEq/L (136-145) 08/02/17 04:54 Potassium 4.4 mEq/L (3.5-4.5) 08/02/17 04:54 Chloride 103 mEq/L (98-109) 08/02/17 04:54 Carbon Dioxide 27 mEq/L (19-29) 08/02/17 04:54 BUN 15 mg/dL (7-20) 08/02/17 04:54 Creatinine 0.79 mg/dL (0.57-1.11) 08/02/17 04:54 Est GFR ( Amer) > 60 (> 60) 08/02/17 04:54 Est GFR (Non-Af Amer) > 60 (> 60) 08/02/17 04:54 BUN/Creatinine Ratio 19 (6-26) 08/02/17 04:54 Glucose 235 mg/dL (70-99) H 08/02/17 04:54 POC Glucose 220 (58-89) H 08/02/17 07:36 Calculated Osmolality 296 (280-300) 08/02/17 04:54 Calcium 9.1 mg/dL (8.6-10.8) 08/02/17 04:54 Magnesium 1.7 mg/dL (1.6-2.6) 08/02/17 04:54 Total Bilirubin 0.3 mg/dL (0.2-1.2) 07/31/17 16:29 AST 22 Units/L (5-34) 07/31/17 16:29 ALT 36 Units/L (0-55) 07/31/17 16:29 Alkaline Phosphatase 92 Units/L (38-126) 07/31/17 16:29 Serum Total Protein 7.6 g/dL (6.0-8.3) 07/31/17 16:29 Albumin 4.0 g/dL (3.5-5.0) 07/31/17 16:29 Globulin 3.6 g/dL (2.4-3.5) H 07/31/17 16:29 Albumin/Globulin Ratio 1.1 (1.1-2.2) 07/31/17 16:29 Urine Color Yellow (Yellow) 08/01/17 12:06 Urine Clarity Clear (Clear) 08/01/17 12:06 Urine pH 6.5 pH Units (5.0-8.0) 08/01/17 12:06 Ur Specific [place] 1.013 (1.010-1.025) 08/01/17 12:06 Urine Protein Negative mg/dL (Neg-Trace) 08/01/17 12:06 Urine Glucose (UA) 250 mg/dL (Normal) H 08/01/17 12:06 Urine Ketones Negative mg/dL (Negative) 08/01/17 12:06 Urine Blood Negative (Negative) 08/01/17 12:06 Urine Nitrite Negative (Negative) 08/01/17 12:06 Urine Bilirubin Negative (Negative) 08/01/17 12:06 Urine Urobilinogen Normal mg/dL (Normal) 08/01/17 12:06 Ur Leukocyte Esterase Negative (Negative) 08/01/17 12:06 Ur Culture Indicated? NO (NO) 08/01/17 12:06 Impressions Ankle X-Ray 07/31/17 14:57 IMPRESSION: No acute osseous abnormality of the left ankle. Small avulsion fracture along the dorsal aspect of the talar neck. D/ / Carlos Fernandez MD / Carlos Fernandez MD Interpreting Provider: Carlos Fernandez MD Foot X-Ray 07/31/17 14:57 IMPRESSION: No acute osseous abnormality of the left ankle. Small avulsion fracture along the dorsal aspect of the talar neck. D/ / Carlos Fernandez MD / Carlos Fernandez MD Interpreting Provider: Carlos Fernandez MD Knee X-Ray 07/31/17 15:45 IMPRESSION: No acute bony abnormality. D/ / Vianca Rubalcava Cha, MD / Vianca Rubalcava Cha, MD Interpreting Provider: Vianca Rubalcava Cha, MD Echocardiogram 08/01/17 11:22 Impressions: LVEF 55%. Mild concentric left ventricular hypertrophy. Mild left ventricular diastolic dysfunction. Normal right ventricular structure and function. No significant valvular dysfunction. No pulmonary hypertension. Left Ventricular Wall Motion: Rest Echo Findings All wall segments showed normal motion. Findings: Study Quality * Technically adequate exam. ECG Findings * Normal sinus rhythm. Left Ventricle * LVEF 55%. * Normal LV chamber size, wall thickness and function. * Mild concentric left ventricular hypertrophy. * Mild left ventricular diastolic dysfunction. Right Ventricle * Normal right ventricular structure and function. Left Atrium * Normal left atrial size. Right Atrium * Normal right atrial size. Aortic Valve * No aortic regurgitation. * Trileaflet aortic valve. * No aortic stenosis. Mitral Valve * Normal mitral valve structure. * No mitral stenosis. * Trace mitral regurgitation. Pulmonic Valve * Pulmonic valve is not well visualized. * No pulmonic stenosis. * Trace pulmonic regurgitation. Tricuspid Valve * Tricuspid valve not well visualized. * No tricuspid regurgitation. Pulmonary Artery * Pulmonary artery not well visualized. Aorta * Normally sized aortic root. Pericardium * There is no pericardial effusion present. Interatrial Septum * Interatrial septum not well evaluated. IVC * The IVC is not well evaluated. - Imaging EKG: image reviewed (83bpm SR) Anesthesia Exam Vital Signs Temp Pulse Resp BP Pulse Ox 08/02/17 11:51 98.1 F 92 16 124/73 92 08/02/17 06:42 98.4 F 90 15 131/68 92 08/02/17 00:06 98.1 F 81 18 141/80 96 08/01/17 20:35 98.3 F 90 18 148/80 96 Intake and Output 08/02/17 08/02/17 08/02/17 07:59 15:59 23:59 Intake Total 0 / 0 Output Total 200 / 200 200 / 200 Balance -200 / -200 -200 / -200 Intake: Oral 0 / 0 Output: Urine 200 / 200 200 / 200 Other: # Voids 1 Blood Glucose* 220 209 Height: 5'4" Weight: 144# BMI = 28 NPO (# of Hours): MNoc, Chewing gum - HEENT Pupil (Motor): Pupils equal, EOMI Mallampati: II Teeth: Normal Oral Opening: Greater than 3 - TELECOM ENGINEER LOC: Confused TELECOM ENGINEER Motor: Normal RUE, Normal LUE, Normal RLE, Normal LLE, Normal Face TELECOM ENGINEER Sensory: Normal: RUE, LUE, RLE, LLE, Face - Cardiac Rhythm: Regular Murmur: None - Pulmonary Breath Sounds: bilateral Clear Respiratory Effort: Symmetrical Anesthesia Assess/Plan ASA Score: 2, 3 Modified Ravalli Scale for Level of Consciousness: Cooperative, oriented, and tranquil Anesthetic Plan: General Monitoring Plan: Standard Monitors Recovery Plan: PACU Anes Supervising Prov Stmt: Pt seen/evaluated, R&B discussed, questions answered and consent obtained. Pau Rowland MD
[2017-08-02] MEDS ORDERED: Metoclopramide 10 MG/2 ML VIAL ONE (16:47)
[2017-08-02] MEDS ORDERED: Famotidine 20 MG/2 ML VIAL ONE (16:47)
[2017-08-02] MEDS ORDERED: ceFAZolin 2,000 MG in D5% in Water 100 ML IVPB ONE (16:57)
[2017-08-02] MEDS ORDERED: Acetaminophen IV 1,000 MG/100 ML INFUS..BTL ONE (17:08)
--- NOTE | 2017-08-02 17:08 | Electrocardiograph Report ---
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
[2017-08-02] MEDS ORDERED: *HR* Promethazine 25 MG/ML VIAL IVP PRN (17:37)
[2017-08-02] MEDS ORDERED: *HR* HYDROmorphone (PF) 1 MG/ML SYRINGE IVP PRN (17:37)
--- NOTE | 2017-08-02 19:15 | Anesthesia Evaluation Post Op ---
Date of Encounter: 08/02/17 Time of Encounter: 19:14 - Vital Signs Vital Signs: Vital Signs/O2 Sat, Most Current Temp Pulse Resp BP Pulse Ox 98.1 F 91 8 143/81 95 08/02/17 18:41 08/02/17 19:01 08/02/17 19:01 08/02/17 19:01 08/02/17 19:01 - Lungs Lungs: Clear Ascult./Percussion - Airway Airway: Non-obstructed - Cardiovascular Regular Rate - Mental Status Mental Status: Asleep with brisk response to light stimulation - Pain Pain Scale: 3 Pain Scale used: Numeric (1 - 10) - Nausea Vomiting Nausea Vomiting: Not Present - Hydration Hydration: NPO, Has not voided - Discharge PostOp Status: Transfer Patient to floor
--- NOTE | 2017-08-02 20:36 | Operative Note ---
Date of procedure: 08/02/17 Pre-op diagnosis: Trimalleolar ankle fracture with subluxation, right Post-op diagnosis: same Procedure: Open reduction, internal fixation of the medial and lateral malleolus of the trimalleolar ankle fracture, right. Open repair of syndesmosis, right. Implants: Obi plate with associated screws Anesthesia: LADARIUS Surgeon: Edward Trevino Estimated blood loss (cc): 10 Condition: stable Disposition: PACU Procedure in Detail: The patient was administered IV antibiotics. The patient was transported to the operative room and placed on operating table in the position. Following general anesthesia the foot was scrubbed prepped and draped in the usual aseptic fashion. A timeout was performed. The lower extremity was raised to 60 degrees for hemostasis and exsanguinated utilizing an Esmarch bandage. The pneumatic tourniquet was inflated. The leg was lowered to the table. An incision was made over the fibula and deepened through subcutaneous tissue with care taken to identify and retract all vital neurovascular structures. The fibula was reduced utilizing a lobster claw. Once the fibula was reduced and fixated with a neutralization plate, the bone was noted to be have significantly poor quality and had significant comminution of the fracture site. Locking screws were utilized to stabilize the plate on the bone and stabilize the fracture site, the attention was directed to the medial malleolus. A small incision was made over the medial malleolus and deepened through subcutaneous tissue with care taken to identify and retract all vital neurovascular structures. A wire was inserted into the medial malleolus after which a cannulated screw was then utilized to fixate the medial malleolus. After sufficient fixation was noted at the medial malleolus the attention was directed to the syndesmosis. The syndesmosis was tested and noted to be insufficient, an open syndesmotic repair was performed and a screw was then placed to reduce the syndesmosis. A posterior malleolus was inspected and noted to be in good position and relatively small. The decision was made to leave the posterior malleolus as it does not appear to involve more than 25% of the articular surface of the ankle joint. The incision sites were then irrigated with copious amounts of normal saline and closed in a layered fashion. A dry sterile dressing was applied. The pneumatic tourniquet was deflated and a hyperemic response was noted to all digits. The patient was placed in a posterior splint. The patient tolerated the procedure and anesthesia well and was transported to the recovery room with vital signs stable and vascular status intact to both feet. The patient will be readmitted to the floor per anesthesia. The patient will keep the dressings clean, dry, intact until the follow-up appointment in 1-2 weeks. The patient's weightbearing status will be strict nonweightbearing to the right and weightbearing as tolerated to the left with a short cam boot on. Tomorrow the patient will receive a cam boot for the right lower extremity and left lower extremity. The patient will need physical therapy to eval her for returning home or care facility recommendations. Social work may be needed if the patient is sent to a care facility. All dressings will be left intact until the patient follows up with me in approximately 1 week in clinic.
[2017-08-02] MEDS ORDERED: Acetaminophen 325 MG TABLET PO PRN (21:16)
[2017-08-02] MEDS ORDERED: Naloxone 0.4 MG/ML INJ IVP PRN (21:16)
[2017-08-02] MEDS ORDERED: *HR* Dextrose 50 % in Water (Syg) 50 ML SYRINGE IVP PRN (21:16)
[2017-08-02] MEDS ORDERED: Dextrose Gel 15 GM PO PRN ×2 (21:16)
[2017-08-02] MEDS ORDERED: D5% in Water 1,000 ML IVC PRN (21:16)
[2017-08-02] MEDS ORDERED: Ondansetron 4 MG/2 ML VIAL IVP PRN (21:16)
[2017-08-03] MEDS: *HR* Morphine 2 MG/ML SYRINGE IVP PRN ×4 (01:58→22:04)
[2017-08-03] MEDS: *HR* HYDROcodone/Acet 5/325 mg TABLET PO PRN ×4 (05:09→20:00)
[2017-08-03 06:03] LABS: BUN/Creatinine Ratio 19 (6-26); Blood Urea Nitrogen 16 mg/dL (7-20); Calcium 9.2 mg/dL (8.6-10.8); Carbon Dioxide 27 mEq/L (19-29); Chloride 100 mEq/L (98-109); Glucose 287 mg/dL (70-99); Magnesium 1.7 mg/dL (1.6-2.6); Osmolality,Calculated 300 (280-300); Potassium 4.3 mEq/L (3.5-4.5); Sodium 139 mEq/L (136-145); eGFR For African Americans > 60 (> 60); eGFR For Non-African Americans > 60 (> 60)
[2017-08-03 06:43] LABS: Hematocrit 34.2 % (35.3-44.9); Hemoglobin 11.3 g/dL (11.5-15.4); Mean Corpuscular Hemoglobin 28.3 pg (28.0-33.3); Mean Corpuscular Volume 85.5 fL (83.0-100.0); Mean Platelet Volume 11.6 fL (9.4-12.4); Platelet Count 242 K/mcL (140-400); Red Cell Distribution Width 12.8 % (11.5-14.5)
[2017-08-03] MEDS: Diltiazem CD (24hr) 240 MG CAPSULE PO SCH (08:52)
[2017-08-03] MEDS: Gabapentin 300 MG CAPSULE PO SCH ×3 (08:52→20:00)
[2017-08-03] MEDS: Insulin LISPRO 300 UNITS/3 ML VIAL SQ SCH ×4 (08:52→20:04)
[2017-08-03] MEDS: Pantoprazole 40 MG VIAL IVP SCH (08:52)
--- NOTE | 2017-08-03 12:08 | Podiatry Progress Note ---
Date of Encounter: 08/03/17 Time of Encounter: 12:05 - Assessment and Plan (1) Closed trimalleolar fracture of right ankle Current Visit: Yes Status: Acute Use cam boot when transitioning or ambulating. Ok to remove when in bed. Follow up in one week. keep dressings intact. Elevate and ice. Qualifiers: Encounter type: subsequent encounter Fracture healing: with routine healing Qualified Code(s): S82.851D - Displaced trimalleolar fracture of right lower leg, subsequent encounter for closed fracture with routine healing Subjective Principal diagnosis: Right ankle fracture Interval history: Patient relates that she has less pain and that she feels as though slightly more painful than it was yesterday. Patient denies any other new pedal complaints. Objective - Vital Signs Vital Signs: Vital Signs Temp Pulse Resp BP Pulse Ox 08/03/17 11:42 98.7 F 86 15 136/65 95 08/03/17 10:07 86 15 150/69 96 08/03/17 07:30 98.7 F 85 15 109/63 98 08/03/17 06:31 98.7 F 86 17 109/63 96 08/03/17 00:40 98.4 F 93 16 109/64 94 08/02/17 22:40 99.1 F 94 16 118/70 94 08/02/17 21:40 98.7 F 94 16 120/67 92 08/02/17 20:40 99.3 F 94 18 110/71 95 08/02/17 20:10 98.5 F 96 16 149/77 99 08/02/17 19:42 99.2 F 94 18 132/76 94 08/02/17 19:40 99.2 F 103 17 132/76 99 08/02/17 19:21 99.0 F 92 12 139/70 96 08/02/17 19:11 99.1 F 91 11 151/77 97 08/02/17 19:01 91 8 143/81 95 08/02/17 18:51 88 10 130/72 96 08/02/17 18:41 98.1 F 92 12 129/70 98 Intake and Output 08/02/17 08/03/17 08/03/17 23:59 07:59 15:59 Intake Total 100 / 100 600 / 600 Output Total 310 / 310 900 / 900 Balance -210 / -210 -300 / -300 Intake: IV Fluids 100 / 100 Ancef 2,000 MG In Dextrose 5% 100 / 100 100 ML @ 200 mls/hr IVPB PREOP ONE Rx#:[id number] Oral 600 / 600 Output: Urine 900 / 900 Estimated Blood Loss Urine Amount (Catheter) 300 / 300 Other: # Voids 2 Blood Glucose* 241 250 246 - Exam Exam: CFT intact to the digits. Dressings intact no strikethrough. Cam boot intact. sensation intact to light touch to the digits. No calf pain. - Lab Result Diagrams: 08/03/17 04:42 08/03/17 04:42 Labs: Abnormal lab results WBC 16.0 K/mcL (4.3-11.1) H 08/03/17 04:42 Hgb 11.3 g/dL (11.5-15.4) L 08/03/17 04:42 Hct 34.2 % (35.3-44.9) L 08/03/17 04:42 Neutrophils # 11.6 K/mcL (1.6-8.9) H 07/31/17 16:29 Glucose 287 mg/dL (70-99) H 08/03/17 04:42 POC Glucose 241 (58-89) H 08/02/17 20:10 Globulin 3.6 g/dL (2.4-3.5) H 07/31/17 16:29 Urine Glucose (UA) 250 mg/dL (Normal) H 08/01/17 12:06 - VTE Documentation of Mechanical Device: Venous foot pump, device Consult Discharge Plan - Plan Additional Instructions: Use cam boot when transitioning or ambulating. Nonweightbearing to the right and weightbearing as tolerated to the left with the cam boot intact. Ok to remove boot(s) when in bed. Follow up in one week. keep dressings intact. Elevate and ice. Referrals: Ministerio Oh DO [Primary Care Provider] -
--- NOTE | 2017-08-03 16:59 | Internal Med Progress Note ---
Date of Encounter: 08/03/17 Time of Encounter: 09:40 - Assessment and plan (1) Closed trimalleolar fracture of right ankle Current Visit: Yes Status: Acute Assessment and plan: Acute trimalleolar fracture of right ankle - secondary to mechanical fall S/p ORIF of the medial and lateral malleolus of the trimalleolar ankle fracture on the right side Doing well postoperatively, continue IV Morphine as needed for pain, incentive spirometry Heparin subcutaneous for DVT prophylaxis Podiatry following - Sessions Continue PT/OT, anticipate discharge to [facility] soon Qualifiers: Encounter type: subsequent encounter Fracture healing: with routine healing Qualified Code(s): S82.851D - Displaced trimalleolar fracture of right lower leg, subsequent encounter for closed fracture with routine healing (2) Closed avulsion fracture of left talus Current Visit: Yes Status: Acute Assessment and plan: Acute small avulsion fracture along the dorsal aspect of the talar neck on the left side Podiatry consult - conservative management, Toribio wrap Continue IV Morphine as needed for pain, DVT prophylaxis Consult PT/OT Qualifiers: Encounter type: subsequent encounter Fracture alignment: displaced Fracture healing: with routine healing Qualified Code(s): S92.152D - Displaced avulsion fracture (chip fracture) of left talus, subsequent encounter for fracture with routine healing (3) Hypertension Current Visit: Yes Status: Chronic Assessment and plan: Essential hypertension, controlled, monitor Continue home dose of Cardizem CD Qualifiers: Hypertension type: essential hypertension Qualified Code(s): I10 - Essential (primary) hypertension (4) Diabetes Current Visit: Yes Status: Chronic Assessment and plan: Type 2 diabetes mellitus, [id number], hyperglycemia Continue Levemir, insulin sliding scale, glucose checks Qualifiers: Diabetes mellitus type: type 2 Diabetes mellitus complication status: without complication Diabetes mellitus halfway insulin use: without halfway use Qualified Code(s): E11.9 - Type 2 diabetes mellitus without complications (5) DVT prophylaxis Current Visit: Yes Status: Acute Assessment and plan: Heparin subcutaneous has been added today - Time Spent With Patient 25 - 35 minutes - Subjective Interval history: Examined this morning. Patient is awake and alert. Not in any distress. Sitting up comfortably. Denies chest pain or shortness of breath. Hemodynamically stable. No fever. Patient is postop day #1, s/p ORIF of the medial and lateral malleolus on the right ankle. Patient is tolerated procedure well. Complains of mild pain in right lower extremity which is controlled with pain medication. No other acute events or complaints at this time. - Constitutional Vitals: Temp Pulse Resp BP Pulse Ox 98.7 F 86 15 136/65 95 08/03/17 11:42 08/03/17 11:42 08/03/17 11:42 08/03/17 11:42 08/03/17 11:42 General appearance: Present: cooperative, A&O X 3, pleasant, no acute distress, answers questions appropriately - Head Head exam: Present: atraumatic - Eye Eye exam: Present: EOMI - ENT ENT exam: Present: mucous membranes moist - Respiratory Respiratory exam: Present: CTAB. Absent: chest wall tenderness, rales, rhonchi , wheezes, tachypnea - Cardiovascular Cardiovascular exam: Present: RRR, +S1, +S2 - GI/Abdominal GI/Abdominal exam: Present: soft. Absent: distended, firm, guarding - Extremities Exam Extremities exam: Present: radial pulses palpable and symmetrical. Absent: calf tenderness, cyanotic, pedal edema Additional comments: Right lower extremity surgical dressing intact, no bleeding. - Neurological Exam Neurological exam: Present: alert, oriented X3, no focal deficits. Absent: facial droop, speech deficit Internal Medicine: Result - Labs CBC & Chem 7: 08/03/17 04:42 08/03/17 04:42 Labs: Short CBC 08/03/17 Range/Units 04:42 WBC 16.0 H (4.3-11.1) K/mcL Hgb 11.3 L (11.5-15.4) g/dL Hct 34.2 L (35.3-44.9) % Plt Count 242 (140-400) K/mcL BMP 08/03/17 04:42 Sodium 139 Potassium 4.3 Chloride 100 Carbon Dioxide 27 BUN 16 Creatinine 0.86 Glucose 287 H Calcium 9.2 - ABG Interpretation ABG results: PT/INR, D-dimer PT 11.5 Seconds (9.4-12.1) 07/31/17 16:29 - Impressions Impressions Fluoroscopy 08/02/17 00:00 IMPRESSION: Intraprocedural fluoroscopic spot images as above. See separate procedure report for more information. D/ / Dylan Browne MD / Dylan Browne MD Interpreting Provider: Dylan Browne MD - VTE Documentation of Mechanical Device: Venous foot pump, device Consult Discharge Plan - Plan Additional Instructions: Use cam boot when transitioning or ambulating. Nonweightbearing to the right and weightbearing as tolerated to the left with the cam boot intact. Ok to remove boot(s) when in bed. Follow up in one week. keep dressings intact. Elevate and ice. Referrals: Ministerio Oh DO [Primary Care Provider] -
[2017-08-03] MEDS: *HR* Heparin 5,000 UNIT/ML VIAL SQ SCH (17:23)
[2017-08-03] MEDS: Insulin DETEMIR 100 UNIT/ML X5UNITS SQ SCH (20:00)
[2017-08-04] MEDS: *HR* HYDROcodone/Acet 5/325 mg TABLET PO PRN ×5 (02:54→20:16)
[2017-08-04 04:42] LABS: Basophils # 0.1 K/mcL (0.0-0.2); Basophils % 0.3 %; Eosinophils % 0.1 %; Hematocrit 31.4 % (35.3-44.9); Hemoglobin 10.2 g/dL (11.5-15.4); Immature Granulocytes % 0.8 % (0-4); Lymphocytes # 2.9 K/mcL (0.6-4.6); Lymphocytes % 19.7 %; Mean Corpuscular HGB Conc 32.5 g/dL (31.6-35.5); Mean Corpuscular Hemoglobin 27.8 pg (28.0-33.3); Mean Corpuscular Volume 85.6 fL (83.0-100.0); Mean Platelet Volume 11.4 fL (9.4-12.4); Neutrophils # 10.5 K/mcL (1.6-8.9); Platelet Count 218 K/mcL (140-400); Red Blood Count 3.67 M/mcL (3.82-4.97); Red Cell Distribution Width 12.8 % (11.5-14.5); Segmented Neutrophils % 72.1 %
[2017-08-04] MEDS: *HR* Heparin 5,000 UNIT/ML VIAL SQ SCH ×2 (06:14→17:07)
[2017-08-04] MEDS: Pantoprazole 40 MG VIAL IVP SCH (07:39)
[2017-08-04] MEDS: Gabapentin 300 MG CAPSULE PO SCH ×3 (07:40→20:15)
[2017-08-04] MEDS: Insulin LISPRO 300 UNITS/3 ML VIAL SQ SCH ×4 (07:40→20:20)
[2017-08-04] MEDS: Diltiazem CD (24hr) 240 MG CAPSULE PO SCH (07:40)
[2017-08-04] MEDS ORDERED: Sennosides/Docusate Sodium TABLET PO PRN (15:38)
--- NOTE | 2017-08-04 17:16 | Podiatry Progress Note ---
Date of Encounter: 08/04/17 Time of Encounter: 17:00 - Assessment and Plan (1) Closed trimalleolar fracture of right ankle Current Visit: Yes Status: Acute Assessment: S/p Open reduction, internal fixation of the medial and lateral malleolus of the trimalleolar ankle fracture, right. Open repair of syndesmosis, right. Dressing dry and intact. Plan: Keep dressing dry and intact. NWB to RLE. Okay to keep cam boot off while in bed. Continue to ice and elevate. Keep right heel floated off of bed. Apply cam boot when out of bed. patient services rep coordinating discharge to [facility] for rehab. Qualifiers: Encounter type: subsequent encounter Fracture healing: with routine healing Qualified Code(s): S82.851D - Displaced trimalleolar fracture of right lower leg, subsequent encounter for closed fracture with routine healing (2) Closed avulsion fracture of left talus Current Visit: Yes Status: Acute Qualifiers: Encounter type: subsequent encounter Fracture alignment: displaced Fracture healing: with routine healing Qualified Code(s): S92.152D - Displaced avulsion fracture (chip fracture) of left talus, subsequent encounter for fracture with routine healing Subjective Principal diagnosis: Right ankle fracture Interval history: Patient is s/p Open reduction, internal fixation of the medial and lateral malleolus of the trimalleolar ankle fracture, right. Open repair of syndesmosis, right by Dr. Trevino on 08/02/17. Patient is lying in bed with family at bedside. Pain is rated at a 6 out of 10 to the right ankle. No c/o fever, chills, n/v. Patient denies calf pain. Patient states her right heel has a burning sensation. Objective - Vital Signs Vital Signs: Vital Signs Temp Pulse Resp BP Pulse Ox 08/04/17 16:08 99.3 F 84 18 135/65 93 08/04/17 10:49 98.7 F 85 18 135/71 94 08/04/17 06:57 98.4 F 84 18 119/58 96 08/03/17 23:58 98.8 F 84 17 109/66 94 08/03/17 20:44 98.6 F 75 16 130/68 Intake and Output 08/04/17 08/04/17 08/04/17 07:59 15:59 23:59 Intake Total 358 / 358 Output Total 300 / 300 200 / 200 Balance -300 / -300 158 / 158 Intake: Oral 358 / 358 Output: Urine 300 / 300 200 / 200 Other: Meal Breakfast Percent of Meal Consumed 85% # Voids 1 Blood Glucose* 206 297 181 - Exam Exam: General appearance: alert awake oriented X 3. Calm and pleasant, no acute distress.. Vascular: Left: Pedal pulses +1/4 DP/PT, unable to palpate pedal pulses to right foot secondary to dressing. No evidence of cyanosis, pallor or rubor, Edema graded at 1+/4, Skin Temperature warm, No calf pain with manual compression. capillary refill time is immediate to digits. Neurologic: Sensation intact with light touch to both feet.. Integument: ecchymosis to left lateral ankle, no erythema, no warmth. Postop Exam: S/P dressing dry and intact to RLE, no streaking, no erythema ascending from dressing, no ecchymosis surrounding dressing. - Lab Result Diagrams: 08/04/17 03:42 08/03/17 04:42 Labs: Abnormal lab results WBC 14.5 K/mcL (4.3-11.1) H 08/04/17 03:42 RBC 3.67 M/mcL (3.82-4.97) L 08/04/17 03:42 Hgb 10.2 g/dL (11.5-15.4) L 08/04/17 03:42 Hct 31.4 % (35.3-44.9) L 08/04/17 03:42 MCH 27.8 pg (28.0-33.3) L 08/04/17 03:42 Neutrophils # 10.5 K/mcL (1.6-8.9) H 08/04/17 03:42 Glucose 287 mg/dL (70-99) H 08/03/17 04:42 POC Glucose 181 (58-89) H 08/04/17 16:09 Globulin 3.6 g/dL (2.4-3.5) H 07/31/17 16:29 Urine Glucose (UA) 250 mg/dL (Normal) H 08/01/17 12:06 - VTE Documentation of Mechanical Device: Venous foot pump, device Consult Discharge Plan - Plan Additional Instructions: Use cam boot when transitioning or ambulating. Nonweightbearing to the right and weightbearing as tolerated to the left with the cam boot intact. Ok to remove boot(s) when in bed. Follow up in one week. keep dressings intact. Elevate and ice. Referrals: Ministerio Oh DO [Primary Care Provider] - 08/20/17 8:45 am
--- NOTE | 2017-08-04 18:02 | Internal Med Progress Note ---
Date of Encounter: 08/04/17 Time of Encounter: 17:25 - Assessment and plan (1) Atelectasis Current Visit: Yes Status: Acute Assessment and plan: Counseling patient and family about incentive spirometry and deep breathing (2) Leucocytosis Current Visit: Yes Status: Acute Assessment and plan: Patient has crackles bilateral lung bases, leukocytosis, low-grade fever, will check chest x-ray start Levaquin Qualifiers: Leukocytosis type: unspecified Qualified Code(s): D72.829 - Elevated white blood cell count, unspecified (3) Closed trimalleolar fracture of right ankle Current Visit: Yes Status: Acute Qualifiers: Encounter type: subsequent encounter Fracture healing: with routine healing Qualified Code(s): S82.851D - Displaced trimalleolar fracture of right lower leg, subsequent encounter for closed fracture with routine healing (4) Diabetes Current Visit: Yes Status: Chronic Assessment and plan: Adjust insulin sliding scale Qualifiers: Diabetes mellitus type: type 2 Diabetes mellitus complication status: without complication Diabetes mellitus police or patrol park officer insulin use: without residential use Qualified Code(s): E11.9 - Type 2 diabetes mellitus without complications - Time Spent With Patient 25 - 35 minutes - Subjective Interval history: Patient complaining of feet pain. She is complaining of shortness of breath. Coughing with taking deep breaths - Constitutional Vitals: Temp Pulse Resp BP Pulse Ox 99.3 F 84 18 135/65 93 08/04/17 16:08 08/04/17 16:08 08/04/17 16:08 08/04/17 16:08 08/04/17 16:08 General appearance: Present: cooperative, pleasant, no acute distress - Head Head exam: Present: atraumatic, normocephalic - Neck Neck exam general surgery: Present: supple, trachea midline. Absent: lymphadenopathy - Respiratory Respiratory exam: Present: decreased breath sounds, rales (Bilateral lung base) . Absent: accessory muscle use, wheezes - Cardiovascular Cardiovascular exam: Present: RRR, +S1, +S2. Absent: gallop, rubs, systolic murmur Additional comments: Crackles bilateral lung base - GI/Abdominal GI/Abdominal exam: Present: normal bowel sounds, soft, no peritoneal signs. Absent: distended, tenderness - Extremities Exam Extremities exam: Present: warm. Absent: calf tenderness, cyanotic - Neurological Exam Neurological exam: Present: CN II-XII intact, no focal deficits - Skin Skin exam: Present: dry, intact Internal Medicine: Result - Labs CBC & Chem 7: 08/04/17 03:42 08/03/17 04:42 Labs: Short CBC 08/04/17 Range/Units 03:42 WBC 14.5 H (4.3-11.1) K/mcL Hgb 10.2 L (11.5-15.4) g/dL Hct 31.4 L (35.3-44.9) % Plt Count 218 (140-400) K/mcL Neutrophils # 10.5 H (1.6-8.9) K/mcL - ABG Interpretation ABG results: PT/INR, D-dimer PT 11.5 Seconds (9.4-12.1) 07/31/17 16:29 - VTE Documentation of Mechanical Device: Venous foot pump, device Consult Discharge Plan - Plan Additional Instructions: Use cam boot when transitioning or ambulating. Nonweightbearing to the right and weightbearing as tolerated to the left with the cam boot intact. Ok to remove boot(s) when in bed. Follow up in one week. keep dressings intact. Elevate and ice. Referrals: Ministerio Oh DO [Primary Care Provider] - 08/20/17 8:45 am
[2017-08-04 19:48] LABS: Bilirubin,Urine Negative (Negative); Blood,Urine Negative (Negative); Clarity,Urine Clear (Clear); Color,Urine Yellow (Yellow); Glucose,Urine (UA) 100 mg/dL (Normal); Ketones,Urine Negative (Negative); Leukocyte Esterase,Urine Small (Negative); Nitrite,Urine Negative (Negative); PH,Urine 6.5 pH Units (5.0-8.0); Protein,Urine Negative (Neg-Trace); Specific Gravity,Urine 1.011 (1.010-1.025); Urobilinogen,Urine Normal (Normal)
[2017-08-04 19:49] LABS: Bacteria,Urine None Seen per hpf (None-Few); Hyaline Casts,Urine None Seen per lpf (None-Few); RBC,Urine 0-3 per hpf (0-3); Squamous Epithelial Cell,Urine Moderate per lpf (None-Few)
[2017-08-04] MEDS: Insulin DETEMIR 100 UNIT/ML X5UNITS SQ SCH (20:16)
[2017-08-04] MEDS: levoFLOXacin 500 MG TABLET PO SCH (20:16)
[2017-08-05] MEDS: *HR* HYDROcodone/Acet 5/325 mg TABLET PO PRN ×3 (00:17→10:45)
[2017-08-05] MEDS: *HR* Heparin 5,000 UNIT/ML VIAL SQ SCH (05:10)
[2017-08-05] MEDS: Ondansetron 4 MG/2 ML VIAL IVP PRN ×2 (06:42→14:03)
[2017-08-05 09:42] LABS: Basophils # 0.1 K/mcL (0.0-0.2); Basophils % 0.6 %; Eosinophils # 0.1 K/mcL (0.0-0.6); Eosinophils % 0.5 %; Hematocrit 34.3 % (35.3-44.9); Hemoglobin 11.6 g/dL (11.5-15.4); Immature Granulocytes % 1.1 % (0-4); Lymphocytes # 2.1 K/mcL (0.6-4.6); Lymphocytes % 20.5 %; Mean Corpuscular HGB Conc 33.8 g/dL (31.6-35.5); Mean Corpuscular Hemoglobin 28.2 pg (28.0-33.3); Mean Corpuscular Volume 83.3 fL (83.0-100.0); Mean Platelet Volume 10.8 fL (9.4-12.4); Monocytes # 0.9 K/mcL (0.0-1.3); Monocytes % 8.2 %; Neutrophils # 7.1 K/mcL (1.6-8.9); Platelet Count 227 K/mcL (140-400); Red Blood Count 4.12 M/mcL (3.82-4.97); Red Cell Distribution Width 12.9 % (11.5-14.5); Segmented Neutrophils % 69.1 %
[2017-08-05] MEDS: levoFLOXacin 500 MG TABLET PO SCH (09:49)
[2017-08-05] MEDS: Pantoprazole 40 MG VIAL IVP SCH (09:49)
[2017-08-05] MEDS: Diltiazem CD (24hr) 240 MG CAPSULE PO SCH (09:49)
[2017-08-05] MEDS: Gabapentin 300 MG CAPSULE PO SCH (09:50)
[2017-08-05] MEDS: Insulin LISPRO 300 UNITS/3 ML VIAL SQ SCH ×2 (09:51→12:33)
--- NOTE | 2017-08-05 12:45 | Podiatry Progress Note ---
Date of Encounter: 08/05/17 Time of Encounter: 12:15 - Assessment and Plan (1) Closed trimalleolar fracture of right ankle Current Visit: Yes Status: Acute Assessment: S/p Open reduction, internal fixation of the medial and lateral malleolus of the trimalleolar ankle fracture, right. Open repair of syndesmosis, right. Dressing dry and intact. Plan: Keep dressing dry and intact. NWB to RLE. Okay to keep cam boot off while in bed. Continue to ice and elevate. Keep right heel floated off of bed. Apply cam boot when out of bed. business services manager coordinating [facility]. F/u with Sessions one week after discharge from the hospital. Qualifiers: Encounter type: subsequent encounter Fracture healing: with routine healing Qualified Code(s): S82.851D - Displaced trimalleolar fracture of right lower leg, subsequent encounter for closed fracture with routine healing (2) Closed avulsion fracture of left talus Current Visit: Yes Status: Acute Long fracture talar neck, left Okay to bear weight to LLE with the cam boot. PT evaluated patient, okay to perform passive ROM exercises to the left ankle. Qualifiers: Encounter type: subsequent encounter Fracture alignment: displaced Fracture healing: with routine healing Qualified Code(s): S92.152D - Displaced avulsion fracture (chip fracture) of left talus, subsequent encounter for fracture with routine healing Subjective Principal diagnosis: Right ankle fracture Interval history: Patient is s/p open reduction, internal fixation of the medial and lateral malleolus of the trimalleolar ankle fracture, right. Open repair of syndesmosis, right by Dr. Trevino on 08/02/17. Patient has a long fracture talar neck left. Dressing dry and intact to the right ankle, Toribio wrap intact to the left ankle Patient is sitting up in bed. No c/o fever, chills, n/v. Patient denies calf pain. Patient states she felt sore this morning after therapy. Objective - Vital Signs Vital Signs: Vital Signs Temp Pulse Resp BP Pulse Ox 08/05/17 12:02 99.0 F 93 16 165/84 97 08/05/17 06:42 98.8 F 88 16 143/76 94 08/05/17 02:40 98.5 F 83 18 134/71 95 08/04/17 23:21 99.2 F 110 16 130/51 94 08/04/17 19:52 99.4 F 88 18 152/71 96 08/04/17 16:08 99.3 F 84 18 135/65 93 Intake and Output 08/04/17 08/05/17 08/05/17 23:59 07:59 15:59 Intake Total 120 / 120 Output Total 150 / 150 200 / 200 Balance -150 / -150 -200 / -200 120 / 120 Intake: Oral 120 / 120 Output: Urine 150 / 150 200 / 200 Other: Meal Breakfast Percent of Meal Consumed 50% # Voids 1 1 Weight 73.6 kg Blood Glucose* 258 204 217 Patient Weight 08/05/17 23:59 Weight 73.6 kg - Exam Exam: General appearance: alert awake oriented X 3. Calm and pleasant, no acute distress.. Vascular: Left: Pedal pulses +1/4 DP/PT, unable to palpate pedal pulses to right foot secondary to dressing. No evidence of cyanosis, pallor or rubor, Edema graded at 1+/4, Skin Temperature warm, No calf pain with manual compression. capillary refill time is immediate to digits. Neurologic: Sensation intact with light touch to both feet.. Integument: ecchymosis to left lateral ankle, no erythema, no warmth. Postop Exam: S/P dressing dry and intact to RLE, no streaking, no erythema ascending from dressing, no ecchymosis surrounding dressing. - Lab Result Diagrams: 08/05/17 09:21 08/03/17 04:42 Labs: Abnormal lab results Hct 34.3 % (35.3-44.9) L 08/05/17 09:21 Glucose 287 mg/dL (70-99) H 08/03/17 04:42 POC Glucose 258 (58-89) H 08/04/17 20:20 Globulin 3.6 g/dL (2.4-3.5) H 07/31/17 16:29 Urine Glucose (UA) 100 mg/dL (Normal) H 08/04/17 19:30 Ur Leukocyte Esterase Small (Negative) H 08/04/17 19:30 Urine Microscopic WBC 3-5 per hpf (0-3) H 08/04/17 19:30 Ur Squamous Epith Cells Moderate per lpf (None-Few) H 08/04/17 19:30 Ur Culture Indicated? YES (NO) A 08/04/17 19:30 - VTE Documentation of Mechanical Device: Venous foot pump, device Consult Discharge Plan - Plan Additional Instructions: Use cam boot when transitioning or ambulating. Nonweightbearing to the right and weightbearing as tolerated to the left with the cam boot intact. Ok to remove boot(s) when in bed. Follow up in one week. keep dressings intact. Elevate and ice. Referrals: Ministerio Oh DO [Primary Care Provider] - 08/20/17 8:45 am
[2017-08-05] MEDS: *HR* Morphine 2 MG/ML SYRINGE IVP PRN (14:09)
--- NOTE | 2017-08-05 14:23 | Discharge Summary ---
Date of Encounter: 08/05/17 Time of Encounter: 12:20 - Discharge Diagnosis (1) Atelectasis Priority: Secondary Status: Acute (2) Leucocytosis Priority: Secondary Status: Acute Qualifiers: Leukocytosis type: unspecified Qualified Code(s): D72.829 - Elevated white blood cell count, unspecified (3) Closed trimalleolar fracture of right ankle Priority: Primary Status: Acute Qualifiers: Encounter type: subsequent encounter Fracture healing: with routine healing Qualified Code(s): S82.851D - Displaced trimalleolar fracture of right lower leg, subsequent encounter for closed fracture with routine healing (4) Diabetes Priority: Secondary Status: Chronic Qualifiers: Diabetes mellitus type: type 2 Diabetes mellitus complication status: without complication Diabetes mellitus skilled nursing insulin use: without technician terminal and repeater use Qualified Code(s): E11.9 - Type 2 diabetes mellitus without complications - Discharge Medications Prescriptions: Cyanocobalamin (B-12) [Vitamin B12] 1,000 mcg PO DAILY #90 tablet Ergocalciferol (VITAMIN D2) [Drisdol (50,000 Unit)] 50,000 unit PO QWEEK #15 capsule Insulin ASPART [NovoLOG] See Protocol SQ TIDWM #1 vial Magnesium Oxide [Mag-Ox] 400 mg PO DAILY #60 tablet Home Medications: Biotin 5,000 mcg PO DAILY 07/31/17 [History] Diltiazem CD (24hr) [Cardizem CD] 240 mg PO DAILY 07/31/17 [History] Gabapentin [Neurontin] 600 mg PO TID 07/31/17 [History] Loratadine [Claritin] 10 mg PO DAILY 07/31/17 [History] Montelukast [Singulair] 10 mg PO DAILY 07/31/17 [History] Omeprazole [PriLOSEC] 40 mg PO DAILY 07/31/17 [History] Sitagliptin Phos/Metformin HCl [Janumet 50-1,000 mg Tablet] 1 tab PO BID [History] Acetaminophen [Tylenol] 650 mg PO Q6H PRN tablet 08/05/17 [Rx] Cyanocobalamin (B-12) [Vitamin B12] 1,000 mcg PO DAILY #90 tablet 08/05/17 [Rx] Ergocalciferol (VITAMIN D2) [Drisdol (50,000 Unit)] 50,000 unit PO QWEEK #15 capsule 08/05/17 [Rx] HYDROcodone/Acet 5/325 mg [[place] 5-325 mg] 1 tab PO Q4H PRN #30 tablet 08/05/17 [Rx] Insulin ASPART [NovoLOG] See Protocol SQ TIDWM #1 vial 08/05/17 [Rx] Magnesium Oxide [Mag-Ox] 400 mg PO DAILY #60 tablet 08/05/17 [Rx] Sennosides/Docusate Sodium [Senna Plus] 2 each PO BID PRN tablet 08/05/17 [Rx] levoFLOXacin [Levaquin] 500 mg PO DAILY #6 tablet 08/05/17 [Rx] Allergies/Adverse Reactions: 3 Allergy/AdvReac Type Severity Reaction Status Date / Time Sulfa (Sulfonamide AdvReac Nausea Verified 07/31/17 16:17 Antibiotics) Date of admission: 07/31/17 21:45 Primary care physician: Ministerio Oh, Consults: 08/03/17 07:05 Consult to Discharge Planning [CONS] Routine Comment: Consult to Physical Therapy [CONS] Routine Comment: Evaluate, develop and implement POC Reason for Consult: S/P ankle ORIF nonweightbearing to the right and weightbearing as tolerated to the left, bilateral cam boots short to the left and tall to the right. Discharging clinician: Jemal Bailey Anticipated date of discharge: 08/05/17 - Patient Status Disposition: Transfer Inpatient Rehab Fac Condition: Good - Discharge Instructions Follow Up With: Ministerio Oh DO [Primary Care Provider] - 08/20/17 8:45 am Additional Instructions: Use cam boot when transitioning or ambulating. Nonweightbearing to the right and weightbearing as tolerated to the left with the cam boot intact. Ok to remove boot(s) when in bed. Follow up in one week. keep dressings intact. Elevate and ice. Hospital course: Ms. Conde is a 61 year old female with past medical history of hypertension diabetes. According to the patient she was turning to step down on 2 steps lost her balance and fell she denies hitting her head denies any neck or back injury. However she was experiencing right ankle pain and was unable to bear weight. She also experienced mild pain to her left ankle. She presented to the ER for evaluation and was found to have mildly displaced trimalleolar fracture of the right ankle. Left ankle with soft tissue swelling left foot with small avulsion fracture of the talar neck. The ER did speak with podiatry . Podiatry was consulted, patient had Open reduction, internal fixation of the medial and lateral malleolus of the trimalleolar ankle fracture , right.Open repair of syndesmosis, right.He recommended Use cam boot when transitioning or ambulating. Ok to remove when in bed.Acute trimalleolar fracture of right ankle - patient had a crackles bilateral lung field with her leukocytosis, chest x-ray no evidence of pneumonia, counseling patient about deep breathing . Leukocytosis was trending down. Patient was afebrile . - Time Spent with Patient Total time spent providing and/or coordinating discharge services: Greater than 30 minutes - Constitutional Vitals: Temp Pulse Resp BP Pulse Ox 99.0 F 93 16 165/84 97 08/05/17 12:02 08/05/17 12:02 08/05/17 12:02 08/05/17 12:02 08/05/17 12:02 General appearance: Present: cooperative, pleasant, no acute distress - VTE Documentation of Mechanical Device: Venous foot pump, device
--- NOTE | 2017-08-05 14:27 | Physician Discharge Referral ---
ExtendedCare Referral Info Institutional Level of Care: Skilled - Diagnosis (1) Atelectasis Priority: Secondary Status: Acute (2) Leucocytosis Priority: Secondary Status: Acute (3) Closed trimalleolar fracture of right ankle Priority: Primary Status: Acute (4) Diabetes Priority: Secondary Status: Chronic Prognosis: Good - Transfer Medications Prescriptions: Cyanocobalamin (B-12) [Vitamin B12] 1,000 mcg PO DAILY #90 tablet Ergocalciferol (VITAMIN D2) [Drisdol (50,000 Unit)] 50,000 unit PO QWEEK #15 capsule Home Medications: Biotin 5,000 mcg PO DAILY 07/31/17 [History] Diltiazem CD (24hr) [Cardizem CD] 240 mg PO DAILY 07/31/17 [History] Gabapentin [Neurontin] 600 mg PO TID 07/31/17 [History] Loratadine [Claritin] 10 mg PO DAILY 07/31/17 [History] Montelukast [Singulair] 10 mg PO DAILY 07/31/17 [History] Omeprazole [PriLOSEC] 40 mg PO DAILY 07/31/17 [History] Sitagliptin Phos/Metformin HCl [Janumet 50-1,000 mg Tablet] 1 tab PO BID [History] Acetaminophen [Tylenol] 650 mg PO Q6H PRN tablet 08/05/17 [Rx] Cyanocobalamin (B-12) [Vitamin B12] 1,000 mcg PO DAILY #90 tablet 08/05/17 [Rx] Ergocalciferol (VITAMIN D2) [Drisdol (50,000 Unit)] 50,000 unit PO QWEEK #15 capsule 08/05/17 [Rx] HYDROcodone/Acet 5/325 mg [[place] 5-325 mg] 1 tab PO Q4H PRN #30 tablet 08/05/17 [Rx] Insulin ASPART [NovoLOG] See Protocol SQ TIDWM #1 vial 08/05/17 [Rx] Magnesium Oxide [Mag-Ox] 400 mg PO DAILY #60 tablet 08/05/17 [Rx] Sennosides/Docusate Sodium [Senna Plus] 2 each PO BID PRN tablet 08/05/17 [Rx] levoFLOXacin [Levaquin] 500 mg PO DAILY #6 tablet 08/05/17 [Rx] Allergies/Adverse Reactions: 3 Allergy/AdvReac Type Severity Reaction Status Date / Time Sulfa (Sulfonamide AdvReac Nausea Verified 07/31/17 16:17 Antibiotics) - Respiratory Orders Smoking Cessation: Smoking cessation has been advised. For more information, call the [place] Tobacco Quit Line at 9-701-UUEW-NOW. - Advance Directives Code Status: Full Code - Mobility Orders Ambulate - Rehabiliation Orders Rehab Potential: Good - Diet Orders No Added Salt (MARCIE) (low carb diet) CERTIFICATION: I certify that the transfer of the above named patient to an Extended Care Facility is necessary for the continuing treatment of the diagnosis listed. The above information is true and accurate reflection of patient's current condition. Confidential - Redisclosure prohibited without a patient's written consent.
[2017-08-05 15:29] VITALS: BP 135/71
== END 2017-08-05 16:40 | DRG 493 ==
LOC: EMEROO 14:12 → 3NENU 14:12 → SUATTDRO 21:45
PROVIDERS: ADMIT Nurse Practitioner Family; ATTEND Internal Medicine

== ENCOUNTER 2021-01-06 02:56 | Observation (INO) ==
[2021-01-06] MEDS ORDERED: Naloxone 0.4 MG/ML INJ IVP PRN (10:52)
[2021-01-06] MEDS ORDERED: *HR* Dextrose 50 % in Water (Vial) 50 ML VIAL IVP PRN (10:56)
[2021-01-06] MEDS ORDERED: Dextrose Gel 15 GM/37.5 ML TUBE PO PRN ×2 (10:56)
[2021-01-06] MEDS ORDERED: D5% in Water 1,000 ML IVC PRN (10:56)
[2021-01-06] MEDS ORDERED: 0.9 % Sodium Chloride 1,000 ML ONE (11:30)
[2021-01-06] MEDS: 0.9 % Sodium Chloride 1,000 ML IVC SCH (11:56)
[2021-01-06] MEDS: Insulin LISPRO 300 UNITS/3 ML VIAL SUBQ SCH ×2 (11:57→16:31)
[2021-01-06 12:07] LABS: Basophils % 0.4 %; Eosinophils % 0.3 %; Hematocrit 38.2 % (35.3-44.9); Hemoglobin 12.3 g/dL (11.5-15.4); Immature Granulocytes % 0.4 % (0-4); Lymphocytes # 1.7 K/mcL (0.6-4.6); Lymphocytes % 16.9 %; Mean Corpuscular HGB Conc 32.2 g/dL (31.6-35.5); Mean Corpuscular Hemoglobin 27.5 pg (28.0-33.3); Mean Corpuscular Volume 85.3 fL (83.0-100.0); Mean Platelet Volume 10.8 fL (9.4-12.4); Monocytes # 0.6 K/mcL (0.0-1.3); Monocytes % 5.4 %; Neutrophils # 7.8 K/mcL (1.6-8.9); Platelet Count 273 K/mcL (140-400); Red Blood Count 4.48 M/mcL (3.82-4.97); Red Cell Distribution Width 13.3 % (11.5-14.5); Segmented Neutrophils % 76.6 %; White Blood Count 10.1 K/mcL (4.3-11.1)
[2021-01-06 12:15] LABS: INR 1.2; Prothrombin Time 13.9 Seconds (9.4-12.1)
[2021-01-06 12:17] LABS: Activated Partial Thrombo Time 26.3 Seconds (26.0-36.0)
[2021-01-06 12:25] LABS: Alanine Aminotransferase 12 Units/L (7-52); Albumin 4.6 g/dL (3.5-5.7); Albumin/Globulin Ratio 1.5 (1.1-2.2); Alkaline Phosphatase 49 Units/L (34-104); Aspartate Amino Transferase 12 Units/L (13-39); BUN/Creatinine Ratio 17 (6-26); Bilirubin,Total 0.4 mg/dL (0.3-1.0); Blood Urea Nitrogen 41 mg/dL (8-23); Carbon Dioxide 18 mEq/L (23-29); Chloride 104 mEq/L (98-107); Glucose 135 mg/dL (70-105); Magnesium 1.3 mg/dL (1.6-2.6); Osmolality,Calculated 298 (280-300); Phosphorous 4.1 mg/dL (2.7-4.5); Potassium 3.7 mEq/L (3.5-5.1); Sodium 138 mEq/L (136-145); Total Protein 7.6 g/dL (6.4-8.9); Troponin I < 0.03 ng/mL (< 0.04); eGFR For African Americans 24 (> 60); eGFR For Non-African Americans 20 (> 60)
[2021-01-06] MEDS: *HR* Heparin 5,000 UNIT/ML VIAL SQ SCH (18:22)
[2021-01-06] MEDS: Ondansetron 4 MG/2 ML VIAL IVP PRN (18:26)
[2021-01-06] MEDS ORDERED: tiZANidine 4 MG TABLET PO SCH (22:00)
[2021-01-06] MEDS ORDERED: Gabapentin 400 MG CAPSULE PO SCH (22:00)
[2021-01-07] MEDS: 0.9 % Sodium Chloride 1,000 ML IVC SCH (02:34)
[2021-01-07] MEDS: *HR* Heparin 5,000 UNIT/ML VIAL SQ SCH (05:23)
[2021-01-07] MEDS: Insulin LISPRO 300 UNITS/3 ML VIAL SUBQ SCH ×2 (08:33→11:46)
[2021-01-07] MEDS: Ondansetron 4 MG/2 ML VIAL IVP PRN (08:54)
[2021-01-07] MEDS ORDERED: cefTRIAXone 1,000 MG in Water for inj. (sterile) 10 ML IVP SCH (09:00)
[2021-01-07] MEDS ORDERED: Gabapentin 400 MG CAPSULE PO SCH ×2 (09:00→21:00)
[2021-01-07 09:27] LABS: Basophils % 0.5 %; Eosinophils # 0.1 K/mcL (0.0-0.6); Eosinophils % 1.4 %; Hematocrit 34.7 % (35.3-44.9); Hemoglobin 11.5 g/dL (11.5-15.4); Immature Granulocytes % 0.3 % (0-4); Lymphocytes # 1.8 K/mcL (0.6-4.6); Lymphocytes % 31.8 %; Mean Corpuscular HGB Conc 33.1 g/dL (31.6-35.5); Mean Corpuscular Hemoglobin 28.6 pg (28.0-33.3); Mean Corpuscular Volume 86.3 fL (83.0-100.0); Mean Platelet Volume 10.6 fL (9.4-12.4); Monocytes # 0.5 K/mcL (0.0-1.3); Monocytes % 7.8 %; Neutrophils # 3.4 K/mcL (1.6-8.9); Platelet Count 215 K/mcL (140-400); Red Blood Count 4.02 M/mcL (3.82-4.97); Red Cell Distribution Width 13.5 % (11.5-14.5); Segmented Neutrophils % 58.2 %; White Blood Count 5.8 K/mcL (4.3-11.1)
[2021-01-07 09:47] LABS: BUN/Creatinine Ratio 25 (6-26); Blood Urea Nitrogen 27 mg/dL (8-23); Calcium 8.6 mg/dL (8.6-10.3); Carbon Dioxide 21 mEq/L (23-29); Chloride 109 mEq/L (98-107); Glucose 168 mg/dL (70-105); Osmolality,Calculated 299 (280-300); Potassium 3.6 mEq/L (3.5-5.1); Sodium 140 mEq/L (136-145); eGFR For African Americans > 60 (> 60); eGFR For Non-African Americans 52 (> 60)
[2021-01-07 11:25] VITALS: BP 134/68
[2021-01-07] MEDS ORDERED: tiZANidine 4 MG TABLET PO SCH (21:00)
== END 2021-01-07 16:04 | disposition home or self-care (01) ==
LOC: 3ANU → SUATTDRO 08:50
PROVIDERS: ADMIT Internal Medicine; ATTEND Internal Medicine